=== PATIENT | female | born 1965 | race Asian ===

== ENCOUNTER 2018-05-28 13:41 | Observation (INO) | payer MEDICAID ==
[~2018-05-28] VITALS: Ht 170.2 cm; Wt 139.1 kg
[~2018-05-28 13:41] MED LIST: AMLO10TA8 PO; AMLO5TAB4 PO; ASPI-650 PO; ASPI81TA45 PO; ATOR40TA78 PO; CYCL-259 PO; DOCU100C33 PO; FURO-92 PO; FURO40TA6 PO; Furosemide PO; GLIM1TAB PO; HYDR-3341 PO; HYDR-3342 PO; HYDR25TA6 PO; LISI-167 PO; LISI-170 PO; LISI40TA PO; LOSA50TA2 PO; METF10002 PO; METF500T PO; METF750T2 PO; METO25TA35 PO; METO50TA82 PO; NICO-487 TD; NIFE60TA15 PO; NITR0.4T SL; OXYC-432 PO; POTA20PA25 PO; POTA20TA14 PO
[2018-05-28] MEDS ORDERED: NITROGLYCERIN SINGLE TAB 0.4 MG SL ONE (14:48)
[2018-05-28] MEDS ORDERED: ASPIRIN 81 MG TABLET CHEW ONE (14:49)
[2018-05-28] MEDS ORDERED: SODIUM CHLORIDE FLUSH 10ML SYR IVF ONE (15:00)
[2018-05-28] MEDS ORDERED: NITROGLYCERIN SINGLE TAB 0.4 MG SL PRN (15:00)
[2018-05-28] MEDS ORDERED: ASPIRIN 81 MG TABLET CHEW PO ONE (15:00)
[2018-05-28 15:25] LABS: MEAN CORPUSCULAR HEMOGLOBIN 28.9 pg (27.0-34.8); MEAN CORPUSCULAR HGB CONC 32.8 g/dL (32.4-35.8); MEAN PLATELET VOLUME 9.1 fL (7.4-10.4); PLATELET COUNT 230 x10^3/uL (130-400); RED BLOOD COUNT 5.38 x10^6/uL (3.82-5.3); RED CELL DISTRIBUTION WIDTH 14.8 % (9.6-15.2)
[2018-05-28 15:28] LABS: ALBUMIN 3.4 g/dL (3.4-5.0); ANION GAP 8 mmol/L (5-15); CHLORIDE 106 mmol/L (98-107); CREATININE 0.82 mg/dL (0.55-1.02)
[2018-05-28 15:52] LABS: BASOPHILS # (AUTO) 0.05 x10^3/uL (0-0.1); BASOPHILS % (AUTO) 1 % (0-1); EOSINOPHILS # (AUTO) 0.28 x10^3/uL (0-0.4); EOSINOPHILS % (AUTO) 3 % (1-7); LYMPHOCYTES # (AUTO) 2.31 x10^3/uL (1-3.4); LYMPHOCYTES % (AUTO) 26 % (22-44); MD SCAN; MONOCYTES # (AUTO) 0.45 x10^3/uL (0.2-0.8); MONOCYTES % (AUTO) 5 % (2-9); NEUTROPHILS # (AUTO) 5.71 x10^3/uL (1.8-6.8); NEUTROPHILS % (AUTO) 65 % (42-75)
--- NOTE | 2018-05-28 15:56 | NUR ---
patient reports no chest pain following Nitro SL, IV established, awaiting lab results
--- NOTE | 2018-05-28 16:20 | NUR ---
patient safe in bed at this time, chest pain minimal
[2018-05-28] MEDS ORDERED: ONDANSETRON 2MG/ML, 2ML IVPush PRN (17:30)
[2018-05-28] MEDS ORDERED: NITROGLYCERIN 0.4 MG BOTTLE (25 TABS) SL PRN (17:30)
[2018-05-28] MEDS ORDERED: ACETAMINOPHEN 325 MG TABLET PO PRN (17:30)
[2018-05-28] MEDS ORDERED: GUAIFENESIN/DM 200-20MG, 10ML UDC PO PRN (17:30)
[2018-05-28] MEDS ORDERED: DOCUSATE 100 MG CAPSULE PO PRN (17:30)
[2018-05-28] MEDS ORDERED: NITROGLYCERIN 0.4 MG/SPRAY SL PRN (17:30)
[2018-05-28] MEDS ORDERED: ONDANSETRON ODT 4 MG PO PRN (17:30)
[2018-05-28 17:39] LABS: TROPONIN I 0.043 ng/mL (0.000-0.045)
[2018-05-28 17:44] LABS: HEMOGLOBIN A1C 7.9 % (4.2-6.3)
[2018-05-28] MEDS ORDERED: METOPROLOL TARTRATE 25 MG TABLET ONE (18:33)
[2018-05-28] MEDS ORDERED: HEPARIN 5,000 UNITS/ML, 1ML ONE (18:33)
[2018-05-28 18:38] VITALS: BP 203/100
[2018-05-28] MEDS: METOPROLOL TARTRATE 25 MG TABLET PO SCH (18:43)
[2018-05-28] MEDS: HEPARIN 5,000 UNITS/ML, 1ML SQ SCH (18:44)
[2018-05-28] MEDS: hydrALAzine 20 MG/ML, 1ML IVPush PRN (18:44)
[2018-05-28 19:40] VITALS: BP 93/65
[2018-05-28] MEDS: LISINOPRIL 10 MG TABLET PO SCH (21:41)
[2018-05-28] MEDS: INSULIN LISPRO 100 UNITS/ML, PEN SQ-INSULIN SCH (21:44)
[2018-05-28 23:57] LABS: TROPONIN I 0.044 ng/mL (0.000-0.045)
[2018-05-29 01:01] VITALS: BP 168/79
[2018-05-29] MEDS ORDERED: OXYC-307 PO (01:09)
[2018-05-29] MEDS: HEPARIN 5,000 UNITS/ML, 1ML SQ SCH ×3 (01:29→18:06)
[2018-05-29 05:41] LABS: CHOL/HDL RATIO 4.4; LDL/HDL RATIO 2.8 (0.5-3.0); THYROID STIMULATING HORMONE 0.556 mIU/L (0.358-3.740)
[2018-05-29] MEDS: METOPROLOL TARTRATE 25 MG TABLET PO SCH ×2 (06:04→18:06)
[2018-05-29] MEDS: INSULIN LISPRO 100 UNITS/ML, PEN SQ-INSULIN SCH ×4 (07:00→20:41)
[2018-05-29 07:06] VITALS: BP 147/71
[2018-05-29] MEDS ORDERED: REGADENOSON 0.4 MG/5 ML SYRINGE ONE (08:06)
[2018-05-29] MEDS ORDERED: FUROSEMIDE 40 MG TABLET PO SCH (09:00)
[2018-05-29] MEDS ORDERED: TEMPLATE NON-FORMULARY MED. (Potassium Chloride** 20 MEQ) PO SCH (09:00)
[2018-05-29] MEDS: ASPIRIN 81 MG TABLET EC PO SCH (10:29)
[2018-05-29] MEDS: LISINOPRIL 10 MG TABLET PO SCH ×2 (10:29→20:36)
[2018-05-29 10:30] VITALS: BP 164/107
[2018-05-29 17:00] VITALS: BP 160/73
[2018-05-29 17:06] VITALS: BP 160/83
[2018-05-29 21:40] VITALS: BP 165/82
[2018-05-30] MEDS: HEPARIN 5,000 UNITS/ML, 1ML SQ SCH ×2 (02:16→11:41)
[2018-05-30 03:35] VITALS: BP 156/80
[2018-05-30] MEDS: METOPROLOL TARTRATE 25 MG TABLET PO SCH (05:47)
[2018-05-30] MEDS: INSULIN LISPRO 100 UNITS/ML, PEN SQ-INSULIN SCH ×2 (07:00→11:00)
[2018-05-30 08:00] VITALS: BP 154/78
[2018-05-30] MEDS ORDERED: LISINOPRIL 10 MG TABLET PO SCH (09:00)
[2018-05-30] MEDS: ASPIRIN 81 MG TABLET EC PO SCH (11:40)
[2018-05-30] MEDS ORDERED: METF750T2 PO (13:04)
[2018-05-30] MEDS ORDERED: DOCU-131 PO (13:04)
[2018-05-30] MEDS ORDERED: ATOR40TA78 PO (13:04)
[2018-05-30] MEDS ORDERED: LISI-167 PO (13:04)
[2018-05-30] MEDS ORDERED: ASPI81TA45 PO (13:04)
[2018-05-30] MEDS ORDERED: METO25TA35 PO (13:04)
[2018-05-30 13:45] VITALS: BP 187/101
[2018-05-30] MEDS: hydrALAzine 20 MG/ML, 1ML IVPush PRN (14:29)
== END 2018-05-30 16:05 | disposition home or self-care (01) ==
LOC: ED 14:31 → EDIP 16:53 → INTOOBSV 16:53 → 5SO 18:18 → DCLOUNGE 05-30 15:50
PROVIDERS: ADMIT Internal Medicine; ATTEND Internal Medicine
DX: R07.9 Chest pain, unspecified (principal); I16.0 Hypertensive urgency; E11.9 Type 2 diabetes mellitus without complications; E78.5 Hyperlipidemia, unspecified; F20.9 Schizophrenia, unspecified; F41.1 Generalized anxiety disorder; I11.0 Hypertensive heart disease with heart failure; I50.22 Chronic systolic (congestive) heart failure; I25.2 Old myocardial infarction; J44.9 Chronic obstructive pulmonary disease, unspecified; J98.4 Other disorders of lung; K76.0 Fatty (change of) liver, not elsewhere classified; Z72.0 Tobacco use; Z86.711 Personal history of pulmonary embolism; Z91.14 Patient's other noncompliance with medication regimen; Z91.19 Patient's noncompliance with other medical treatment and regimen
CPT/HCPCS: 36415; 71045; 78452; 80048; 80061; 82040; 82962; 83036; 83735; 84443; 84484; 85025; 85379; 93005; 93017; 96372; 96374; 96376; 99284; A9502; C8929; C9898; G0378; J0360; J1644; J1815; J2785; Q9957

== ENCOUNTER 2018-08-08 10:04 | Emergency (ER) | payer MEDICAID ==
[~2018-08-08] VITALS: Ht 170.2 cm; Wt 139.0 kg
[~2018-08-08 10:04] MED LIST changes: +DOCU-131 PO; +OXYC-307 PO
--- NOTE | 2018-08-08 10:12 | NUR ---
[facility] in [facility] - 08/08/18 at 1013 by JASMIN PT NOW IN ROOM FROM BATHROOM. PT ASKED TO CHANGE INTO GOWN
--- NOTE | 2018-08-08 10:16 | NUR ---
52 Y/O FEMALE BIB AMBULANCE WITH C/O WEAKNESS. PT AMBULATORY WITH STEADY GAIT TO ROOM WITH EMS. PER REPORT PT C/O WEAKNESS D/T NOT HAVING HER MEDICATIONS. PT HAS PCP APPT SATURDAY TO GET REFILLS. PT WAS GIVEN 2 SL NITRO ROTOR COIL TAPER. PIV ESTABLISHED ROTOR COIL TAPER. PT STATES "I AM OUT OF MY MEDICATIONS. I HAVE AN APPT SATURDAY, BUT I DON'T FEEL GOOD." NO ACUTE DISTRESS NOTED. PT PLACED ON CONT PULSE OX,NIBP, DISTRICT SALES LEADER. EDPA BEDSIDE. NO C/O N/V/D, TRAUMA, SYNCOPE, CP, SOB.
--- NOTE | 2018-08-08 10:18 | NUR ---
PT STATES "I TAKE METOPROLOL, LISINOPRIL, METFORMIN, AND ASPIRIN. I DON'T KNOW THE DOSAGES. THERES A FEW MORE MEDS, BUT I DON'T REMEMBER THEM"
[2018-08-08] MEDS ORDERED: SODIUM CHLORIDE FLUSH 10ML SYR IVF ONE (10:30)
--- NOTE | 2018-08-08 10:55 | NUR ---
BEDSIDE REPORT TO CECILY SMITH
--- NOTE | 2018-08-08 10:56 | NUR ---
BEDSIDE REPORT FROM ACE TONY
[2018-08-08 11:23] LABS: BASOPHILS # (AUTO) 0.03 x10^3/uL (0-0.1); BASOPHILS % (AUTO) 0 % (0-1); EOSINOPHILS # (AUTO) 0.18 x10^3/uL (0-0.4); EOSINOPHILS % (AUTO) 2 % (1-7); LYMPHOCYTES # (AUTO) 1.52 x10^3/uL (1-3.4); LYMPHOCYTES % (AUTO) 14 % (22-44); MD NO; MEAN CORPUSCULAR HEMOGLOBIN 29.7 pg (27.0-34.8); MEAN CORPUSCULAR HGB CONC 34.5 g/dL (32.4-35.8); MEAN PLATELET VOLUME 8.8 fL (7.4-10.4); MONOCYTES # (AUTO) 0.59 x10^3/uL (0.2-0.8); MONOCYTES % (AUTO) 6 % (2-9); NEUTROPHILS # (AUTO) 8.26 x10^3/uL (1.8-6.8); NEUTROPHILS % (AUTO) 78 % (42-75); PLATELET COUNT 253 x10^3/uL (130-400); RED CELL DISTRIBUTION WIDTH 14.8 % (9.6-15.2)
[2018-08-08 11:30] LABS: ALANINE AMINOTRANSFERASE 18 U/L (12-78); ALBUMIN 3.1 g/dL (3.4-5.0); ANION GAP 9 mmol/L (5-15); CALCIUM 8.8 mg/dL (8.5-10.1); CHLORIDE 102 mmol/L (98-107); CREATININE 0.82 mg/dL (0.55-1.02)
[2018-08-08 11:34] LABS: ALKALINE PHOSPHATASE 80 U/L (45-117); BILIRUBIN,TOTAL 0.7 mg/dL (0.2-1.0); TOTAL PROTEIN 8.2 g/dL (6.4-8.2); TROPONIN I < 0.015 ng/mL (0.000-0.045)
--- NOTE | 2018-08-08 11:58 | NUR ---
PT SLEEPING IN GURNEY, EQUAL CHEST RISE AND FALL. PT UP FOR RECHECK
[2018-08-08 13:03] VITALS: BP 184/73
--- NOTE | 2018-08-08 13:05 | NUR ---
PT AMBULATED TO BATHROOM WITH STEADY GAIT, UP FOR RECHECK
== END 2018-08-08 13:57 | disposition home or self-care (01) ==
LOC: ED 11:16
DX: R07.89 Other chest pain (principal); I50.9 Heart failure, unspecified; I11.0 Hypertensive heart disease with heart failure; I25.2 Old myocardial infarction; J44.9 Chronic obstructive pulmonary disease, unspecified
CPT/HCPCS: 36415; 71045; 80053; 83880; 84484; 85025; 93005; 99284

== ENCOUNTER 2018-08-10 14:05 | Emergency (ER) | payer MEDICAID ==
[~2018-08-10] VITALS: Ht 170.2 cm; Wt 134.1 kg
--- NOTE | 2018-08-10 14:10 | NUR ---
PT BIB [facility] FROM HOME WITH C/O SHARP ABD PAIN SINCE THIS AM, VOMITING FOR SEVERAL DAYS, AND DYSURIA FOR "A COUPLE WEEKS". HX HTN, DM, AFIB. BP ELEVATED 164/99 FOR MEDICS. PT ARRIVES TO ED A&OX4, C/O ABD PAIN 11/22. ERP AT BS IMMEDIATELY. RV'WD POC WITH PT.
[2018-08-10] MEDS ORDERED: MORPHINE SULFATE 4 MG/ML, 1ML IVPush PRN (14:30)
[2018-08-10] MEDS ORDERED: SODIUM CHLORIDE FLUSH 10ML SYR IVF ONE (14:30)
[2018-08-10 14:34] LABS: MEAN CORPUSCULAR HEMOGLOBIN 28.4 pg (27.0-34.8); MEAN CORPUSCULAR HGB CONC 32.7 g/dL (32.4-35.8); MEAN PLATELET VOLUME 8.6 fL (7.4-10.4); PLATELET COUNT 277 x10^3/uL (130-400); RED BLOOD COUNT 4.66 x10^6/uL (3.82-5.3); RED CELL DISTRIBUTION WIDTH 14.8 % (9.6-15.2)
[2018-08-10 14:43] LABS: ALANINE AMINOTRANSFERASE 21 U/L (12-78); ALBUMIN 3.1 g/dL (3.4-5.0); ANION GAP 10 mmol/L (5-15); CALCIUM 8.9 mg/dL (8.5-10.1); CHLORIDE 101 mmol/L (98-107); CREATININE 0.84 mg/dL (0.55-1.02)
--- NOTE | 2018-08-10 14:43 | NUR ---
CT PENDING BETA RESULT.
[2018-08-10 14:48] LABS: ALKALINE PHOSPHATASE 76 U/L (45-117); BILIRUBIN,TOTAL 0.8 mg/dL (0.2-1.0); INTERNATIONAL NORMALIZED RATIO 1.04 (0.93-1.1); PROTHROMBIN TIME 10.9 Seconds (9.6-11.5); TOTAL PROTEIN 8.1 g/dL (6.4-8.2)
[2018-08-10] MEDS ORDERED: MORPHINE SULFATE 4 MG/ML, 1ML ONE (14:59)
[2018-08-10 15:05] LABS: BASOPHILS # (AUTO) 0.02 x10^3/uL (0-0.1); BASOPHILS % (AUTO) 0 % (0-1); EOSINOPHILS # (AUTO) 0.16 x10^3/uL (0-0.4); EOSINOPHILS % (AUTO) 2 % (1-7); LYMPHOCYTES # (AUTO) 2.23 x10^3/uL (1-3.4); LYMPHOCYTES % (AUTO) 20 % (22-44); MD SCAN; MONOCYTES # (AUTO) 0.61 x10^3/uL (0.2-0.8); MONOCYTES % (AUTO) 6 % (2-9); NEUTROPHILS # (AUTO) 7.98 x10^3/uL (1.8-6.8); NEUTROPHILS % (AUTO) 73 % (42-75)
--- NOTE | 2018-08-10 15:25 | NUR ---
PT AMBULATED TO BR WITHOUT DIFFICULTY. INSTRUCTED ON CLEAN CATCH URINE SAMPLE.
[2018-08-10 15:49] LABS: CULTURE INDICATED? YES; MICROSCOPIC INDICATED
--- NOTE | 2018-08-10 16:17 | NUR ---
ERP IN FOR RE-EVAL.
[2018-08-10] MEDS ORDERED: DICYCLOMINE 20 MG TABLET PO ONE (16:30)
[2018-08-10] MEDS ORDERED: DICYCLOMINE 20 MG TABLET ONE (16:40)
[2018-08-10 16:45] VITALS: BP 178/76
--- NOTE | 2018-08-10 17:12 | NUR ---
BREAK RN NOTE: REPORT RECEIVED FROM PRIMARY RN TARA. PT MEDICATED PER EMAR, TOLERATED WELL. NO N/V AT TIME OF DC. EDMD LAW NOTIFIED BP RECHECK WAS 176/78, EDMD OK'D DC. PT GIVEN DC INSTRUCTIONS AND SCRIPT, EDUCATED REGARDING RX FOR BENTYL, ZOFRAN AND ZANTAC. PT DENIES PAIN AT TIME OF DC. PT AMB TO DC DESK WITH STEADY GAIT, BUS PASS PROVIDED AT PT REQUEST. NADN AT DC. ALL QUESTIONS ANSWERED.
== END 2018-08-10 17:13 | disposition home or self-care (01) ==
LOC: ED 16:21
DX: R10.84 Generalized abdominal pain (principal); N20.0 Calculus of kidney; F17.200 Nicotine dependence, unspecified, uncomplicated; J44.9 Chronic obstructive pulmonary disease, unspecified; I25.2 Old myocardial infarction; I50.9 Heart failure, unspecified; I11.0 Hypertensive heart disease with heart failure; E11.9 Type 2 diabetes mellitus without complications
CPT/HCPCS: 36415; 74176; 80053; 81001; 83690; 84703; 85025; 85610; 85730; 87086; 96374

== ENCOUNTER 2018-08-13 12:55 | Emergency (ER) | payer MEDICAID ==
[~2018-08-13] VITALS: Ht 170.2 cm; Wt 130.0 kg
--- NOTE | 2018-08-13 13:20 | NUR ---
PT PLACED ON HEART MONITOR, BP CUFF, PULSE OX. PT WITHOUT NAUSEA AT THIS TIME. PER PT, CP LESS AND DESCRIBED HEAVINESS. PT WITH SAME SX SATURDAY AND SATURDAY WITH RESOLUTION OF SX WITH REST. CALL LIGHT WITHIN REACH, FAMILY AT BS. WARM BLANKET PROVIDED.
[2018-08-13] MEDS ORDERED: ASPIRIN 81 MG TABLET CHEW PO ONE (13:30)
[2018-08-13 13:50] LABS: BASOPHILS # (AUTO) 0.04 x10^3/uL (0-0.1); BASOPHILS % (AUTO) 0 % (0-1); EOSINOPHILS # (AUTO) 0.22 x10^3/uL (0-0.4); EOSINOPHILS % (AUTO) 2 % (1-7); LYMPHOCYTES # (AUTO) 2.08 x10^3/uL (1-3.4); LYMPHOCYTES % (AUTO) 16 % (22-44); MD NO; MEAN CORPUSCULAR HEMOGLOBIN 28.2 pg (27.0-34.8); MEAN CORPUSCULAR HGB CONC 32.6 g/dL (32.4-35.8); MEAN CORPUSCULAR VOLUME 86.4 fL (80-100); MEAN PLATELET VOLUME 8.5 fL (7.4-10.4); MONOCYTES # (AUTO) 0.49 x10^3/uL (0.2-0.8); MONOCYTES % (AUTO) 4 % (2-9); NEUTROPHILS # (AUTO) 10.16 x10^3/uL (1.8-6.8); NEUTROPHILS % (AUTO) 78 % (42-75); PLATELET COUNT 303 x10^3/uL (130-400); RED BLOOD COUNT 4.08 x10^6/uL (3.82-5.3); RED CELL DISTRIBUTION WIDTH 14.7 % (9.6-15.2)
[2018-08-13 13:52] LABS: ALBUMIN 2.8 g/dL (3.4-5.0); ANION GAP 8 mmol/L (5-15); CALCIUM 8.7 mg/dL (8.5-10.1); CHLORIDE 108 mmol/L (98-107); CREATININE 0.93 mg/dL (0.55-1.02)
[2018-08-13 13:56] LABS: TROPONIN I 0.017 ng/mL (0.000-0.045)
--- NOTE | 2018-08-13 14:03 | NUR ---
ALL RESULTS BACK, PT FOR RECHECK.
[2018-08-13 14:38] VITALS: BP 142/70
== END 2018-08-13 14:54 | disposition home or self-care (01) ==
LOC: ED 14:09
DX: R06.00 Dyspnea, unspecified (principal); R07.89 Other chest pain; E11.9 Type 2 diabetes mellitus without complications; F17.210 Nicotine dependence, cigarettes, uncomplicated
CPT/HCPCS: 36415; 71045; 80048; 82040; 83880; 84484; 85025; 93005; 99284; 99406

== ENCOUNTER 2018-08-19 08:13 | Emergency (ER) | payer MEDICAID ==
[~2018-08-19] VITALS: Ht 170.2 cm; Wt 131.4 kg
[2018-08-19 09:09] LABS: TROPONIN I 0.018 ng/mL (0.000-0.045)
[2018-08-19 09:39] VITALS: BP 189/94
== END 2018-08-19 09:41 ==
LOC: ED 09:19
DX: R07.89 Other chest pain (principal); F17.210 Nicotine dependence, cigarettes, uncomplicated; J44.9 Chronic obstructive pulmonary disease, unspecified; I50.9 Heart failure, unspecified; I11.0 Hypertensive heart disease with heart failure; E11.9 Type 2 diabetes mellitus without complications; I25.2 Old myocardial infarction
CPT/HCPCS: 36415; 84484; 93005; 99284

== ENCOUNTER 2018-09-28 04:20 | Inpatient (IN) | payer MEDICAID ==
[~2018-09-28] VITALS: Ht 177.8 cm; Wt 131.3 kg
[~2018-09-28 04:20] MED LIST changes: +FERR325T18 PO; +HYDROCHLOROTH12.5 MG PO; -NITR0.4T SL; +NITR0.4T41 SL; +OMEP-110 PO; +POTA10CA PO
--- NOTE | 2018-09-28 04:57 | NUR ---
PT TO ROOM FROM TRIAGE VIA WHEELCHAIR. EMESIS BAG CONTAINING APPROX 100ML THROWN AWAY. PT REPORTS L THORACIC PAIN/CP X "THIS AM". +N/V/PRODUCTIVE COUGH. NO BLOOD NOTED IN EMESIS. PT WITH LOW GRADE TEMP IN TRIAGE. PT HYPERTENSIVE IN TRIAGE, REPORTS HX OF SAME AND MISSED LAST DOSE D/T OF GRANDCHILD. PT DENIES CARRASCO; GROSS NEURO INTACT. CHEST NON-TENDER TO PALPATION, PT PWD. RAPID, DEEP BREATHS NOTED. PT ABLE TO SPEAK IN FULL SENTENCES, SPO2 >90% ON RA. BP/SPO2/ECG MONITOR IN PLACE. NSR ON MONITOR. PIV ATTEMPT X1 UNSUCCESSFUL. YANY RN AT BEDSIDE TO ATTEMPT.
--- NOTE | 2018-09-28 05:44 | NUR ---
PT TRANSFERED SELF WITH STANDBY ASSISTANCE TO BEDSIDE COMMODE. UA COLLECTED AND IS AT BEDSIDE AWAITING ORDER. BP/SPO2/ECG MONITORING REMAIN IN PLACE. PT REMAINS HYPERTENSIVE. ERP AT BEDSIDE FOR INITIAL ASSESSMENT AND IS AWARE. PT DENIES CP/CARRASCO; GROSS NEURO INTACT.
[2018-09-28] MEDS ORDERED: ACETAMINOPHEN 325 MG TABLET ONE (05:51)
[2018-09-28] MEDS ORDERED: hydrALAzine 20 MG/ML, 1ML ONE ×2 (05:51→07:00)
--- NOTE | 2018-09-28 05:59 | NUR ---
PT MEDICATED PER EMAR FOR FEVER AND HTN.
[2018-09-28] MEDS ORDERED: ACETAMINOPHEN 325 MG TABLET PO ONE (06:00)
[2018-09-28] MEDS ORDERED: hydrALAzine 20 MG/ML, 1ML IV ONE ×2 (06:00→07:00)
[2018-09-28] MEDS ORDERED: SODIUM CHLORIDE FLUSH 10ML SYR IVF ONE (06:00)
[2018-09-28 06:09] LABS: MEAN CORPUSCULAR HEMOGLOBIN 27.4 pg (27.0-34.8); MEAN CORPUSCULAR HGB CONC 31.7 g/dL (32.4-35.8); MEAN CORPUSCULAR VOLUME 86.6 fL (80-100); MEAN PLATELET VOLUME 9.3 fL (7.4-10.4); PLATELET COUNT 296 x10^3/uL (130-400); RED BLOOD COUNT 5.17 x10^6/uL (3.82-5.3); RED CELL DISTRIBUTION WIDTH 17.3 % (9.6-15.2)
[2018-09-28] MEDS ORDERED: ONDANSETRON 2MG/ML, 2ML ONE (06:13)
[2018-09-28] MEDS ORDERED: MORPHINE SULFATE 4 MG/ML, 1ML ONE ×2 (06:13→06:59)
[2018-09-28] MEDS: MORPHINE SULFATE 4 MG/ML, 1ML IVPush PRN ×2 (06:16→07:03)
[2018-09-28 06:21] LABS: MICROSCOPIC NOT IND
--- NOTE | 2018-09-28 06:21 | NUR ---
PT MEDICATED PER EMAR FOR 01/22 PAIN. 2L O2 BY NC APPLIED FOR SUPPORT. SPO2 REMAINS >90%. IMPROVED RR NOTED, NOW 22.
[2018-09-28 06:22] LABS: ALANINE AMINOTRANSFERASE 14 U/L (12-78); ANION GAP 9 mmol/L (5-15); CALCIUM 9.7 mg/dL (8.5-10.1); CHLORIDE 99 mmol/L (98-107); CREATININE 0.94 mg/dL (0.55-1.02); MD YES
[2018-09-28 06:23] LABS: CULTURE INDICATED? NO
[2018-09-28 06:24] LABS: ANISOCYTOSIS 1+; BAND#(MANUAL) 0.79 x10^3/uL; BANDS%(MANUAL) 4 % (0-7); EOS% (MANUAL) 1 % (1-7); LYMPH#(MANUAL) 0.79 x10^3/uL (1-3.4); LYMPHS% (MANUAL) 4 % (22-44); MONOS#(MANUAL) 0.39 x10^3/uL (0.3-2.7); MONOS% (MANUAL) 2 % (2-9); NRBC % (MANUAL) 1 % (0-1); SEG#(MANUAL) 17.53 x10^3/uL (1.8-6.8); SEGS% (MANUAL) 89 % (42-75)
[2018-09-28 06:25] LABS: <PLATELET ESTIMATE> ADEQUATE; <PLT MORPHOLOGY> NORMAL PLT MORPH
[2018-09-28 06:26] LABS: ALKALINE PHOSPHATASE 90 U/L (45-117); BILIRUBIN,TOTAL 0.8 mg/dL (0.2-1.0); TOTAL PROTEIN 9.3 g/dL (6.4-8.2); TROPONIN I < 0.015 ng/mL (0.000-0.045)
[2018-09-28] MEDS ORDERED: ONDANSETRON 2MG/ML, 2ML IVPush ONE (06:30)
--- NOTE | 2018-09-28 06:51 | NUR ---
Received bedside report from CECILY Cohen. All questions answered. NADN. No needs expressed. Pt resting on gurney with both bedrails up for safety measures. Pt has call light within reach. Pt RR at 19 on 2 L oxygen via NC and pulse ox is 95%. Pt remains hypertensive at 187/79, with heart rate at 98.
[2018-09-28] MEDS ORDERED: SODIUM CHLORIDE 0.9% 1,000ML IVBOLUS ONE (07:00)
[2018-09-28] MEDS ORDERED: CEFTRIAXONE PMX 1GM/50ML 50 ML IVPB ONE (07:00)
[2018-09-28] MEDS ORDERED: AZITHROMYCIN 500 MG in SODIUM CHLORIDE 0.9% 250 ML IV ONE (07:00)
[2018-09-28] MEDS ORDERED: ONDANSETRON 2MG/ML, 2ML IVPush PRN ×2 (07:30→08:30)
[2018-09-28] MEDS ORDERED: MORPHINE SULFATE 4 MG/ML, 1ML IVPush PRN (07:30)
--- NOTE | 2018-09-28 07:48 | NUR ---
Called and provided report to CECILY Knott. All questions answered. Pt ready to transfer to floor from ED.
--- NOTE | 2018-09-28 07:55 | NUR ---
Pt transfered to floor from ED and left with all personal belongings.
[2018-09-28] MEDS ORDERED: ZOSYN PER PHARMACY MC PRN (08:30)
[2018-09-28] MEDS ORDERED: ONDANSETRON ODT 4 MG PO PRN (08:30)
[2018-09-28] MEDS ORDERED: hydrALAzine 20 MG/ML, 1ML IVPush PRN (08:30)
[2018-09-28] MEDS ORDERED: PROMETHAZINE 25 MG/ML, 1ML IM PRN (08:30)
[2018-09-28] MEDS ORDERED: VANCOMYCIN PER PHARMACY MC PRN (08:30)
[2018-09-28] MEDS ORDERED: LABETALOL 5MG/ML, 20ML IVPush PRN (08:30)
[2018-09-28] MEDS ORDERED: PHARMACOKINETIC MONITORING MC PRN (09:00)
[2018-09-28] MEDS ORDERED: PHARMACOKINETIC CONSULTATION MC ONE (09:00)
[2018-09-28] MEDS ORDERED: OMNIPAQUE 350 MG/ML, 100ML BOTTLE ONE (09:28)
[2018-09-28] MEDS: ENOXAPARIN 40 MG/0.4 ML SQ SCH (10:16)
[2018-09-28] MEDS: HYDROCHLOROTHIAZIDE 12.5 MG CAPSULE PO SCH (10:17)
[2018-09-28] MEDS: NICOTINE 7 MG/24 HR PATCH.TD24 TD SCH (10:17)
[2018-09-28] MEDS: SODIUM CHLORIDE 0.9% 1,000 ML IV SCH ×2 (10:17→20:13)
[2018-09-28] MEDS: LISINOPRIL 20 MG TABLET PO SCH ×2 (10:17→21:02)
[2018-09-28] MEDS: FERROUS SULFATE 325 MG TABLET PO SCH (10:17)
[2018-09-28] MEDS: PIPERACILLIN/TAZO/PMX 3.375GM 50 ML IV SCH ×3 (10:18→22:30)
[2018-09-28] MEDS: GUAIFENESIN 200 MG TABLET PO SCH ×3 (10:59→21:02)
[2018-09-28] MEDS: DOXYCYCLINE 100 MG in DEXTROSE 5% 250 ML IV SCH ×3 (10:59→23:36)
[2018-09-28 12:56] VITALS: BP 126/75
[2018-09-28] MEDS: VANCOMYCIN 2,000 MG in SODIUM CHLORIDE 0.9% 500 ML IV SCH (13:00)
[2018-09-28] MEDS: INSULIN LISPRO 100 UNITS/ML, PEN SQ-INSULIN SCH ×3 (13:01→21:01)
[2018-09-28] MEDS: ACETAMINOPHEN 325 MG TABLET PO PRN ×2 (13:41→21:03)
[2018-09-28] MEDS: OMEPRAZOLE 20 MG CAPSULE.DR PO SCH (16:41)
[2018-09-28 17:54] VITALS: BP 128/78
[2018-09-28] MEDS: METOPROLOL TARTRATE 25 MG TABLET PO SCH (17:57)
[2018-09-28 19:52] VITALS: BP 104/67
[2018-09-29] MEDS ORDERED: SODIUM CHLORIDE 0.9% 1,000 ML IV SCH (02:00)
[2018-09-29 02:51] VITALS: BP 128/75
[2018-09-29] MEDS: SODIUM CHLORIDE 0.9% 1,000 ML IV SCH (04:00)
[2018-09-29] MEDS: PIPERACILLIN/TAZO/PMX 3.375GM 50 ML IV SCH ×4 (04:04→22:00)
[2018-09-29] MEDS: OMEPRAZOLE 20 MG CAPSULE.DR PO SCH ×2 (05:11→16:10)
[2018-09-29] MEDS: METOPROLOL TARTRATE 25 MG TABLET PO SCH ×2 (05:11→17:17)
[2018-09-29] MEDS: GUAIFENESIN 200 MG TABLET PO SCH ×4 (05:11→20:13)
[2018-09-29] MEDS: ACETAMINOPHEN 325 MG TABLET PO PRN ×3 (05:11→20:16)
[2018-09-29 06:17] LABS: MEAN CORPUSCULAR HEMOGLOBIN 27.6 pg (27.0-34.8); MEAN CORPUSCULAR HGB CONC 31.5 g/dL (32.4-35.8); MEAN CORPUSCULAR VOLUME 87.6 fL (80-100); MEAN PLATELET VOLUME 8.5 fL (7.4-10.4); PLATELET COUNT 238 x10^3/uL (130-400); RED BLOOD COUNT 4.12 x10^6/uL (3.82-5.3); RED CELL DISTRIBUTION WIDTH 17.4 % (9.6-15.2)
[2018-09-29 06:25] LABS: CALCIUM 8.3 mg/dL (8.5-10.1); CHLORIDE 105 mmol/L (98-107)
[2018-09-29] MEDS: VANCOMYCIN 2,000 MG in SODIUM CHLORIDE 0.9% 500 ML IV SCH (06:26)
[2018-09-29 06:32] LABS: ALANINE AMINOTRANSFERASE 12 U/L (12-78); ALBUMIN 2.8 g/dL (3.4-5.0); ALKALINE PHOSPHATASE 56 U/L (45-117); ANION GAP 6 mmol/L (5-15); BILIRUBIN,TOTAL 1.3 mg/dL (0.2-1.0); TOTAL PROTEIN 7.1 g/dL (6.4-8.2)
[2018-09-29 06:33] LABS: BASOPHILS # (AUTO) 0.03 x10^3/uL (0-0.1); BASOPHILS % (AUTO) 0 % (0-1); EOSINOPHILS # (AUTO) 0.13 x10^3/uL (0-0.4); EOSINOPHILS % (AUTO) 1 % (1-7); LYMPHOCYTES # (AUTO) 2.12 x10^3/uL (1-3.4); LYMPHOCYTES % (AUTO) 10 % (22-44); MD SCAN; MONOCYTES # (AUTO) 0.87 x10^3/uL (0.2-0.8); MONOCYTES % (AUTO) 4 % (2-9); NEUTROPHILS # (AUTO) 17.94 x10^3/uL (1.8-6.8); NEUTROPHILS % (AUTO) 85 % (42-75)
[2018-09-29 06:34] VITALS: BP 99/63
[2018-09-29] MEDS: INSULIN LISPRO 100 UNITS/ML, PEN SQ-INSULIN SCH ×4 (07:23→20:13)
[2018-09-29] MEDS: LISINOPRIL 20 MG TABLET PO SCH ×2 (09:00→20:13)
[2018-09-29] MEDS: ENOXAPARIN 40 MG/0.4 ML SQ SCH (09:00)
[2018-09-29] MEDS: NICOTINE 7 MG/24 HR PATCH.TD24 TD SCH (09:00)
[2018-09-29] MEDS: HYDROCHLOROTHIAZIDE 12.5 MG CAPSULE PO SCH (09:00)
[2018-09-29] MEDS: FERROUS SULFATE 325 MG TABLET PO SCH (09:00)
[2018-09-29 09:03] VITALS: BP 147/74
[2018-09-29] MEDS ORDERED: VANCOMYCIN 2,000 MG in SODIUM CHLORIDE 0.9% 500 ML IV SCH (11:00)
[2018-09-29 12:00] VITALS: BP 152/82
[2018-09-29] MEDS: DOXYCYCLINE 100 MG in DEXTROSE 5% 250 ML IV SCH ×2 (12:21→22:54)
[2018-09-29] MEDS: POTASSIUM CHLORIDE 20 MEQ TAB.ER.PRT PO SCH (16:12)
[2018-09-29 17:19] VITALS: BP 162/76
[2018-09-29 19:32] VITALS: BP 143/74
[2018-09-30] MEDS ORDERED: SODIUM CHLORIDE 0.9% 1,000 ML IV SCH (02:00)
[2018-09-30 02:49] VITALS: BP 164/78
[2018-09-30] MEDS: PIPERACILLIN/TAZO/PMX 3.375GM 50 ML IV SCH (04:31)
[2018-09-30] MEDS: GUAIFENESIN 200 MG TABLET PO SCH ×4 (05:24→21:13)
[2018-09-30] MEDS: OMEPRAZOLE 20 MG CAPSULE.DR PO SCH ×2 (05:24→17:26)
[2018-09-30] MEDS: METOPROLOL TARTRATE 25 MG TABLET PO SCH ×2 (05:25→08:20)
[2018-09-30 05:39] LABS: BASOPHILS % (AUTO) 0 % (0-1); EOSINOPHILS # (AUTO) 0.25 x10^3/uL (0-0.4); EOSINOPHILS % (AUTO) 3 % (1-7); LYMPHOCYTES # (AUTO) 1.71 x10^3/uL (1-3.4); LYMPHOCYTES % (AUTO) 17 % (22-44); MD NO; MEAN CORPUSCULAR HEMOGLOBIN 27.1 pg (27.0-34.8); MEAN CORPUSCULAR HGB CONC 31.4 g/dL (32.4-35.8); MEAN CORPUSCULAR VOLUME 86.4 fL (80-100); MEAN PLATELET VOLUME 8.4 fL (7.4-10.4); MONOCYTES # (AUTO) 0.52 x10^3/uL (0.2-0.8); MONOCYTES % (AUTO) 5 % (2-9); NEUTROPHILS # (AUTO) 7.51 x10^3/uL (1.8-6.8); NEUTROPHILS % (AUTO) 75 % (42-75); PLATELET COUNT 229 x10^3/uL (130-400); RED BLOOD COUNT 4.01 x10^6/uL (3.82-5.3); RED CELL DISTRIBUTION WIDTH 16.6 % (9.6-15.2)
[2018-09-30 05:49] LABS: CALCIUM 9.1 mg/dL (8.5-10.1); CHLORIDE 106 mmol/L (98-107)
[2018-09-30 05:55] LABS: ALANINE AMINOTRANSFERASE 13 U/L (12-78); ALBUMIN 2.9 g/dL (3.4-5.0); ALKALINE PHOSPHATASE 59 U/L (45-117); ANION GAP 9 mmol/L (5-15); BILIRUBIN,TOTAL 0.5 mg/dL (0.2-1.0); CREATININE 0.81 mg/dL (0.55-1.02); TOTAL PROTEIN 7.5 g/dL (6.4-8.2)
[2018-09-30] MEDS: INSULIN LISPRO 100 UNITS/ML, PEN SQ-INSULIN SCH ×4 (08:09→21:14)
[2018-09-30] MEDS: POTASSIUM CHLORIDE 20 MEQ TAB.ER.PRT PO SCH ×2 (08:19→17:26)
[2018-09-30] MEDS: LISINOPRIL 20 MG TABLET PO SCH ×2 (08:19→21:14)
[2018-09-30] MEDS: FERROUS SULFATE 325 MG TABLET PO SCH (08:19)
[2018-09-30] MEDS: ENOXAPARIN 40 MG/0.4 ML SQ SCH (08:20)
[2018-09-30] MEDS: HYDROCHLOROTHIAZIDE 25 MG TABLET PO SCH (08:20)
[2018-09-30] MEDS: NICOTINE 7 MG/24 HR PATCH.TD24 TD SCH (08:20)
[2018-09-30 08:28] VITALS: BP 179/77
[2018-09-30] MEDS ORDERED: CEFTRIAXONE PMX 1GM/50ML 50 ML IV SCH (09:00)
[2018-09-30] MEDS ORDERED: AMLODIPINE 5 MG TABLET PO SCH (09:00)
[2018-09-30 11:01] LABS: HEMOGLOBIN A1C 6.5 % (4.2-6.3)
[2018-09-30] MEDS: DOXYCYCLINE 100 MG in DEXTROSE 5% 250 ML IV SCH ×2 (11:32→23:12)
[2018-09-30] MEDS: SPIRONOLACTONE 25 MG TABLET PO SCH (11:43)
[2018-09-30 13:50] VITALS: BP 163/76
[2018-09-30] MEDS: ALBUTEROL SULFATE 2.5 MG/3 ML NPPB PRN (14:18)
[2018-09-30 20:22] VITALS: BP 165/84
[2018-09-30] MEDS: ACETAMINOPHEN 325 MG TABLET PO PRN (21:17)
[2018-10-01] VITALS (8 sets, daily range): BP systolic 129–196; BP diastolic 67–97
[2018-10-01] MEDS: GUAIFENESIN 200 MG TABLET PO SCH ×4 (05:32→20:57)
[2018-10-01] MEDS: OMEPRAZOLE 20 MG CAPSULE.DR PO SCH ×2 (05:32→16:07)
[2018-10-01] MEDS: ALBUTEROL SULFATE 2.5 MG/3 ML NPPB PRN ×2 (06:30→14:35)
[2018-10-01 06:38] LABS: BASOPHILS # (AUTO) 0.02 x10^3/uL (0-0.1); BASOPHILS % (AUTO) 0 % (0-1); EOSINOPHILS # (AUTO) 0.28 x10^3/uL (0-0.4); EOSINOPHILS % (AUTO) 5 % (1-7); LYMPHOCYTES # (AUTO) 1.69 x10^3/uL (1-3.4); LYMPHOCYTES % (AUTO) 27 % (22-44); MD NO; MEAN CORPUSCULAR HEMOGLOBIN 27.7 pg (27.0-34.8); MEAN CORPUSCULAR HGB CONC 31.9 g/dL (32.4-35.8); MEAN CORPUSCULAR VOLUME 86.8 fL (80-100); MONOCYTES # (AUTO) 0.35 x10^3/uL (0.2-0.8); MONOCYTES % (AUTO) 6 % (2-9); NEUTROPHILS # (AUTO) 3.86 x10^3/uL (1.8-6.8); NEUTROPHILS % (AUTO) 62 % (42-75); PLATELET COUNT 289 x10^3/uL (130-400); RED BLOOD COUNT 4.39 x10^6/uL (3.82-5.3); RED CELL DISTRIBUTION WIDTH 17.2 % (9.6-15.2)
[2018-10-01 06:46] LABS: ALBUMIN 3.3 g/dL (3.4-5.0); ANION GAP 10 mmol/L (5-15); CALCIUM 9.9 mg/dL (8.5-10.1); CHLORIDE 106 mmol/L (98-107)
[2018-10-01 06:50] LABS: ALANINE AMINOTRANSFERASE 16 U/L (12-78); ALKALINE PHOSPHATASE 67 U/L (45-117); BILIRUBIN,TOTAL 0.4 mg/dL (0.2-1.0); CREATININE 0.77 mg/dL (0.55-1.02); TOTAL PROTEIN 8.4 g/dL (6.4-8.2)
[2018-10-01] MEDS: INSULIN LISPRO 100 UNITS/ML, PEN SQ-INSULIN SCH ×4 (07:00→20:58)
[2018-10-01] MEDS: LISINOPRIL 20 MG TABLET PO SCH ×2 (08:13→20:58)
[2018-10-01] MEDS: HYDROCHLOROTHIAZIDE 25 MG TABLET PO SCH (08:14)
[2018-10-01] MEDS: METOPROLOL TARTRATE 25 MG TABLET PO SCH (08:14)
[2018-10-01] MEDS: DOXYCYCLINE 100MG TABLET PO SCH ×2 (08:14→20:58)
[2018-10-01] MEDS: SPIRONOLACTONE 25 MG TABLET PO SCH (08:14)
[2018-10-01] MEDS: POTASSIUM CHLORIDE 20 MEQ TAB.ER.PRT PO SCH ×2 (08:15→16:00)
[2018-10-01] MEDS: AMOXICILLIN/CLAV 875-125MG TABLET PO SCH ×2 (08:16→20:57)
[2018-10-01] MEDS: NICOTINE 7 MG/24 HR PATCH.TD24 TD SCH (08:16)
[2018-10-01] MEDS: ENOXAPARIN 40 MG/0.4 ML SQ SCH (08:16)
[2018-10-01] MEDS: ACETAMINOPHEN 325 MG TABLET PO PRN (08:33)
[2018-10-01] MEDS: FERROUS SULFATE 325 MG TABLET PO SCH (12:24)
[2018-10-01] MEDS ORDERED: LIDODERM 5% PATCH TD PRN (12:30)
[2018-10-02 01:10] VITALS: BP 183/96
[2018-10-02 01:36] VITALS: BP 161/83
[2018-10-02 05:21] LABS: BASOPHILS # (AUTO) 0.04 x10^3/uL (0-0.1); BASOPHILS % (AUTO) 1 % (0-1); EOSINOPHILS # (AUTO) 0.28 x10^3/uL (0-0.4); EOSINOPHILS % (AUTO) 5 % (1-7); LYMPHOCYTES # (AUTO) 1.48 x10^3/uL (1-3.4); LYMPHOCYTES % (AUTO) 25 % (22-44); MD NO; MEAN CORPUSCULAR HGB CONC 31.7 g/dL (32.4-35.8); MEAN CORPUSCULAR VOLUME 85.2 fL (80-100); MEAN PLATELET VOLUME 7.9 fL (7.4-10.4); MONOCYTES # (AUTO) 0.45 x10^3/uL (0.2-0.8); MONOCYTES % (AUTO) 8 % (2-9); NEUTROPHILS % (AUTO) 62 % (42-75); PLATELET COUNT 280 x10^3/uL (130-400); RED BLOOD COUNT 4.43 x10^6/uL (3.82-5.3); RED CELL DISTRIBUTION WIDTH 17.1 % (9.6-15.2)
[2018-10-02 05:33] LABS: CHLORIDE 104 mmol/L (98-107)
[2018-10-02 05:41] LABS: ALANINE AMINOTRANSFERASE 14 U/L (12-78); ALBUMIN 3.2 g/dL (3.4-5.0); ALKALINE PHOSPHATASE 61 U/L (45-117); ANION GAP 7 mmol/L (5-15); BILIRUBIN,TOTAL 0.6 mg/dL (0.2-1.0); CALCIUM 9.7 mg/dL (8.5-10.1); CREATININE 0.81 mg/dL (0.55-1.02); TOTAL PROTEIN 7.9 g/dL (6.4-8.2)
[2018-10-02] MEDS: OMEPRAZOLE 20 MG CAPSULE.DR PO SCH (05:44)
[2018-10-02] MEDS: GUAIFENESIN 200 MG TABLET PO SCH ×2 (05:44→11:23)
[2018-10-02 07:21] VITALS: BP 176/93
[2018-10-02] MEDS ORDERED: SPIR25TA5 PO (08:27)
[2018-10-02] MEDS ORDERED: HYDR25TA6 PO (08:27)
[2018-10-02] MEDS ORDERED: AMOX1TAB12 PO (08:27)
[2018-10-02] MEDS ORDERED: GUAI200T3 PO (08:27)
[2018-10-02] MEDS ORDERED: HYDR-3343 PO (08:27)
[2018-10-02] MEDS ORDERED: DOXY100T PO (08:27)
[2018-10-02] MEDS ORDERED: CLON0.1T22 PO (08:29)
[2018-10-02] MEDS: ENOXAPARIN 40 MG/0.4 ML SQ SCH (08:49)
[2018-10-02] MEDS: DOXYCYCLINE 100MG TABLET PO SCH (08:50)
[2018-10-02] MEDS: INSULIN LISPRO 100 UNITS/ML, PEN SQ-INSULIN SCH ×2 (08:50→11:24)
[2018-10-02] MEDS: AMOXICILLIN/CLAV 875-125MG TABLET PO SCH (08:50)
[2018-10-02] MEDS: POTASSIUM CHLORIDE 20 MEQ TAB.ER.PRT PO SCH (08:50)
[2018-10-02] MEDS: SPIRONOLACTONE 25 MG TABLET PO SCH (08:51)
[2018-10-02] MEDS: METOPROLOL TARTRATE 25 MG TABLET PO SCH (08:51)
[2018-10-02] MEDS: HYDROCHLOROTHIAZIDE 25 MG TABLET PO SCH (08:51)
[2018-10-02] MEDS: LISINOPRIL 20 MG TABLET PO SCH (08:51)
[2018-10-02] MEDS: NICOTINE 7 MG/24 HR PATCH.TD24 TD SCH (08:52)
[2018-10-02] MEDS ORDERED: metFORMIN 500 MG TABLET PO SCH (09:00)
[2018-10-02] MEDS: FERROUS SULFATE 325 MG TABLET PO SCH (11:23)
== END 2018-10-02 11:50 | disposition home or self-care (01) | DRG 871 ==
LOC: ED 05:28 → EDIP 07:38 → 4EST 08:11 → DCLOUNGE 10-02 11:29
PROVIDERS: ADMIT Hospitalist; ATTEND Hospitalist
DX: A41.9 Sepsis, unspecified organism (principal); J15.9 Unspecified bacterial pneumonia; J96.01 Acute respiratory failure with hypoxia; Z68.41 Body mass index [BMI] 40.0-44.9, adult; E87.1 Hypo-osmolality and hyponatremia; I50.22 Chronic systolic (congestive) heart failure; J44.0 Chronic obstructive pulmonary disease with (acute) lower respiratory infection; I16.1 Hypertensive emergency; E11.65 Type 2 diabetes mellitus with hyperglycemia; E66.01 Morbid (severe) obesity due to excess calories; E78.5 Hyperlipidemia, unspecified; E86.1 Hypovolemia; E87.6 Hypokalemia; F17.200 Nicotine dependence, unspecified, uncomplicated; I11.0 Hypertensive heart disease with heart failure; I25.2 Old myocardial infarction; I27.20 Pulmonary hypertension, unspecified; R65.20 Severe sepsis without septic shock; Z79.899 Other long term (current) drug therapy; Z86.711 Personal history of pulmonary embolism; Z87.11 Personal history of peptic ulcer disease
CPT/HCPCS: 36415; 84145; 99291; J7613; 71045; 71275; 78582; 80053; 81003; 82962; 83036; 83605; 83880; 84484; 85025; 87040; 87070; 87205; 93005; 93975; 94640; 96365; 96375; 96376; G0378; J0456; J0696; J1650; J2405; J2543; J3370; J7060; Q9967; A9540; A9558; C9898; J0360; J1815; J2270; J7030; J7040; J7050

== ENCOUNTER 2019-03-04 14:02 | Emergency (ER) | payer MEDICAID ==
[~2019-03-04] VITALS: Ht 167.6 cm; Wt 130.0 kg
[~2019-03-04 14:02] MED LIST changes: +AMOX1TAB12 PO; +CLON0.1T22 PO; +DOXY100T PO; +GUAI200T37 PO; +HYDR-3343 PO; -METF750T2 PO; +METF750T42 PO; +SPIR25TA5 PO
--- NOTE | 2019-03-04 14:11 | NUR ---
PT WITH C/O FEELING LIGHTHEADED AND DIZZY FOR THE PAST 12HRS. PT BP ON ARRIVAL 208/85. PT DOES NOT BP AT HOME, PT STOPPED BP MEDICATIONS TWO MONTHS AGO. PT ALSO STATES SHE WAS CONTSIPATED FOR A FEW DAYS AND THEN HAD A LARGE BM YESTERDAY 03/03, SHE NOTICED SOME BRIGHT RED BLOOD IN STOOL BP MONITOR ON, CARD MONITOR, CONT PULSE OX
[2019-03-04] MEDS ORDERED: LABETALOL 5MG/ML, 20ML ONE (14:46)
--- NOTE | 2019-03-04 14:50 | NUR ---
PT MEDICATED PER MAR, LABS DRAWN. PT AMBULATED TO BR WITH STEADY GAIT.
[2019-03-04] MEDS ORDERED: LABETALOL 5MG/ML, 20ML IVPush ONE (15:00)
[2019-03-04 15:11] LABS: BASOPHILS # (AUTO) 0.03 x10^3/uL (0-0.1); BASOPHILS % (AUTO) 0 % (0-1); EOSINOPHILS # (AUTO) 0.19 x10^3/uL (0-0.4); EOSINOPHILS % (AUTO) 2 % (1-7); LYMPHOCYTES # (AUTO) 2.38 x10^3/uL (1-3.4); LYMPHOCYTES % (AUTO) 24 % (22-44); MD NO; MEAN CORPUSCULAR HEMOGLOBIN 28.2 pg (27.0-34.8); MEAN CORPUSCULAR HGB CONC 32.8 g/dL (32.4-35.8); MEAN PLATELET VOLUME 8.8 fL (7.4-10.4); MONOCYTES # (AUTO) 0.45 x10^3/uL (0.2-0.8); MONOCYTES % (AUTO) 5 % (2-9); NEUTROPHILS # (AUTO) 6.76 x10^3/uL (1.8-6.8); NEUTROPHILS % (AUTO) 69 % (42-75); PLATELET COUNT 239 x10^3/uL (130-400); RED BLOOD COUNT 5.61 x10^6/uL (3.82-5.3); RED CELL DISTRIBUTION WIDTH 17.8 % (9.6-15.2)
[2019-03-04 15:18] LABS: ALBUMIN 3.5 g/dL (3.4-5.0); ANION GAP 6 mmol/L (5-15); CALCIUM 9.1 mg/dL (8.5-10.1); CHLORIDE 106 mmol/L (98-107)
[2019-03-04 15:22] LABS: ALANINE AMINOTRANSFERASE 21 U/L (12-78); ALKALINE PHOSPHATASE 74 U/L (45-117); BILIRUBIN,TOTAL 0.5 mg/dL (0.2-1.0); TOTAL PROTEIN 8.1 g/dL (6.4-8.2)
[2019-03-04] MEDS ORDERED: hydrALAzine 20 MG/ML, 1ML IV ONE (15:30)
[2019-03-04] MEDS ORDERED: hydrALAzine 20 MG/ML, 1ML ONE (15:31)
--- NOTE | 2019-03-04 15:34 | NUR ---
PT BP BACK UP 223/98, MADE AWARE, ADDITIONAL ORDERS RECIEVED, PT MEDICATED PER MAR
--- NOTE | 2019-03-04 15:56 | NUR ---
PT TO IMAGING
[2019-03-04 15:59] VITALS: BP 177/78
== END 2019-03-04 16:48 | disposition home or self-care (01) ==
LOC: ED 16:26
DX: E11.65 Type 2 diabetes mellitus with hyperglycemia (principal); I10 Essential (primary) hypertension; R53.1 Weakness; R10.10 Upper abdominal pain, unspecified
CPT/HCPCS: 36415; 74021; 80053; 83690; 85025; 93005; 96374; 96375; 99284; J0360

== ENCOUNTER 2020-02-28 14:02 | Inpatient (IN) | payer MEDICAID ==
[~2020-02-28] VITALS: Ht 162.6 cm; Wt 135.0 kg
[~2020-02-28 14:02] MED LIST changes: +AMLO-211 PO; -AMLO10TA8 PO; +NIFE-6 PO; -NIFE60TA15 PO; -OXYC-432 PO; +OXYC1TAB18 PO
[2020-02-28] MEDS ORDERED: SODIUM CHLORIDE 0.9% 1,000 ML IV ONE (14:30)
[2020-02-28] MEDS ORDERED: SODIUM CHLORIDE FLUSH 10ML SYR IVF ONE (14:30)
[2020-02-28] MEDS ORDERED: ONDANSETRON 2MG/ML, 2ML IVPush ONE (14:30)
[2020-02-28] MEDS ORDERED: LABETALOL 20 MG/4 ML ONE (14:32)
--- NOTE | 2020-02-28 14:35 | NUR ---
NEURO CALLED BACK @[phone]
--- NOTE | 2020-02-28 14:36 | NUR ---
10mg ivp labetolol administered for hypertension
--- NOTE | 2020-02-28 14:38 | NUR ---
NEURO SURGERY CALLED @ [phone]
[2020-02-28 14:42] LABS: BASOPHILS % (AUTO) 1 % (0-1); EOSINOPHILS % (AUTO) 2 % (1-7); LYMPHOCYTES % (AUTO) 31 % (22-44); MEAN CORPUSCULAR HEMOGLOBIN 27.9 pg (27.0-34.8); MEAN CORPUSCULAR HGB CONC 32.4 g/dL (32.4-35.8); MEAN PLATELET VOLUME 8.9 fL (7.4-10.4); MONOCYTES % (AUTO) 5 % (2-9); NEUTROPHILS % (AUTO) 61 % (42-75); PLATELET COUNT 232 x10^3/uL (130-400); RED BLOOD COUNT 5.99 x10^6/uL (3.82-5.3); RED CELL DISTRIBUTION WIDTH 16.1 % (9.6-15.2)
[2020-02-28 14:45] LABS: MD NO
--- NOTE | 2020-02-28 14:45 | NUR ---
NEURO SURGERY CALLED BACK @[phone]
[2020-02-28] MEDS ORDERED: LABETALOL 5MG/ML, 20ML IVPush ONE (15:00)
--- NOTE | 2020-02-28 15:00 | NUR ---
Successful RSI by Dr. Vasquez for inability to protect airway
[2020-02-28 15:02] LABS: INTERNATIONAL NORMALIZED RATIO 0.99 (0.93-1.1); PROTHROMBIN TIME 10.5 Seconds (9.6-11.5)
[2020-02-28] MEDS: SODIUM CHLORIDE 0.9% 1,000 ML IV SCH (15:30)
[2020-02-28] MEDS ORDERED: MIDAZOLAM 1 MG/ML, 2ML IVPush ONE ×2 (15:30→16:00)
[2020-02-28] MEDS ORDERED: OXYcodone IR 5MG TABLET PO PRN (15:30)
[2020-02-28] MEDS ORDERED: SUCCINYLCHOLINE 20 MG/ML, 10ML IVPush ONE ×2 (15:30→17:00)
[2020-02-28] MEDS ORDERED: PROPOFOL 100 ML IV PRN (15:30)
[2020-02-28] MEDS ORDERED: ACETAMINOPHEN 325 MG TABLET PO PRN (15:30)
[2020-02-28] MEDS ORDERED: ONDANSETRON 2MG/ML, 2ML IVPush PRN (15:30)
[2020-02-28] MEDS ORDERED: BISACODYL 10 MG SUPP PR PRN (15:30)
[2020-02-28] MEDS ORDERED: morphine SULFATE 10 MG/ML, 1ML IVPush PRN (15:30)
[2020-02-28] MEDS ORDERED: ETOMIDATE 20 MG/10 ML IV ONE (15:30)
[2020-02-28] MEDS ORDERED: MANNITOL PMX 20% 500 ML ONE (15:38)
[2020-02-28] MEDS ORDERED: FUROSEMIDE 20 MG/2 ML ONE (15:39)
[2020-02-28] MEDS ORDERED: FENTANYL PF 250 MCG/5ML ONE (15:40)
[2020-02-28] MEDS ORDERED: BACITRACIN 50,000 UNIT ONE (15:54)
[2020-02-28] MEDS ORDERED: BACITRACIN OINT 500U/GM, 15 GM ONE (15:54)
[2020-02-28] MEDS ORDERED: THROMBIN 5,000 UNIT VIAL TP ONE (15:54)
[2020-02-28] MEDS ORDERED: BUPIVACAINE/PF 0.5% ONE (15:54)
[2020-02-28] MEDS ORDERED: INSULIN LISPRO 100 UNITS/ML, PEN SQ-INSULIN SCH (16:00)
[2020-02-28] MEDS ORDERED: OMNIPAQUE 350 MG/ML, 75ML BOTTLE ONE (16:06)
--- NOTE | 2020-02-28 16:06 | NUR ---
Right ij central line placed with 2 provider consent b/p down to 120/70 (presumed to be from additional sedation-just given 5 of versed as breathing over vent/moving extremities.) Nicardipine paused
[2020-02-28] MEDS ORDERED: PROPOFOL 50 ML ONE ×2 (16:09→17:34)
--- NOTE | 2020-02-28 16:15 | NUR ---
Post ett/cl chest xray at bedside
[2020-02-28] MEDS: LEVETIRACETAM 1,000 MG in SODIUM CHLORIDE 0.9% 100 ML IV SCH (16:20)
--- NOTE | 2020-02-28 16:35 | NUR ---
Family at bedside then Transported to OR
[2020-02-28] MEDS ORDERED: VASOPRESSIN 20 UNIT/ML, 1ML ONE (16:37)
[2020-02-28] MEDS ORDERED: PHENYLEPHRINE 10 MG/ML ONE (16:37)
[2020-02-28] MEDS ORDERED: NEOSTIGMINE 1 MG/ML, 10ML ONE (17:32)
[2020-02-28] MEDS ORDERED: PROPOFOL 10 MG/ML, 20ML ONE (17:32)
[2020-02-28] MEDS ORDERED: ROCURONIUM 10MG/ML,5ML ONE ×2 (17:32→17:58)
[2020-02-28] MEDS ORDERED: GLYCOPYRROLATE 0.2MG/1ML, 5ML ONE (17:32)
[2020-02-28] MEDS ORDERED: CEFAZOLIN 1,000 MG ONE (17:32)
[2020-02-28] MEDS ORDERED: INSULIN SINGLE DOSE, ER ONE (17:37)
[2020-02-28] MEDS ORDERED: BUPIVACAINE/PF-EPI 0.5% 1:200K INFIL ONE (17:52)
[2020-02-28] MEDS ORDERED: NEOSPORIN OINT, 15GM ONE (18:03)
[2020-02-28] MEDS ORDERED: HYDROmorphone 2 MG/ML, 1ML IV PRN (19:00)
[2020-02-28] MEDS ORDERED: DIPHENHYDRAMINE 50 MG/ML, 1ML IV PRN (19:00)
[2020-02-28] MEDS ORDERED: ONDANSETRON 2MG/ML, 2ML IV PRN (19:00)
[2020-02-28] MEDS ORDERED: LEVETIRACETAM 100 MG/ML, 5ML IV SCH (19:30)
[2020-02-28] MEDS ORDERED: LEVETIRACETAM 500 MG in SODIUM CHLORIDE 0.9% 100 ML IV SCH (19:30)
[2020-02-28] MEDS ORDERED: PHARMACY MAY ADJ FOR RENAL FX MC SCH (20:00)
[2020-02-28] MEDS: ENALAPRILAT 1.25 MG/ML, 2ML IVPush PRN ×2 (20:05→23:29)
[2020-02-28] MEDS: FAMOTIDINE 20 MG/2 ML IVPush SCH (20:05)
[2020-02-28] MEDS: INSULIN LISPRO 100 UNITS/ML, PEN SQ-INSULIN SCH (21:48)
[2020-02-29] MEDS: FENTANYL PF 100 MCG/2ML IVPush PRN (01:47)
[2020-02-29] MEDS: CEFAZOLIN PMX 1GM/50ML 50 ML IVPB SCH ×3 (02:25→17:51)
[2020-02-29 04:00] VITALS: BP 155/60
[2020-02-29] MEDS ORDERED: LEVETIRACETAM 500 MG in SODIUM CHLORIDE 0.9% 100 ML IV SCH (04:00)
[2020-02-29] MEDS: INSULIN LISPRO 100 UNITS/ML, PEN SQ-INSULIN SCH ×4 (04:27→20:13)
[2020-02-29] MEDS: LEVETIRACETAM 1,000 MG in SODIUM CHLORIDE 0.9% 100 ML IV SCH ×2 (04:34→14:26)
[2020-02-29 04:45] LABS: BASOPHILS % (AUTO) 0 % (0-1); EOSINOPHILS % (AUTO) 0 % (1-7); LYMPHOCYTES % (AUTO) 11 % (22-44); MEAN CORPUSCULAR HEMOGLOBIN 27.4 pg (27.0-34.8); MEAN CORPUSCULAR HGB CONC 31.8 g/dL (32.4-35.8); MEAN PLATELET VOLUME 8.8 fL (7.4-10.4); MONOCYTES % (AUTO) 6 % (2-9); NEUTROPHILS % (AUTO) 83 % (42-75); PLATELET COUNT 222 x10^3/uL (130-400); RED BLOOD COUNT 5.02 x10^6/uL (3.82-5.3); RED CELL DISTRIBUTION WIDTH 16.3 % (9.6-15.2)
[2020-02-29 04:51] LABS: MD NO
[2020-02-29 04:55] LABS: ALBUMIN 3.2 g/dL (3.4-5.0); ANION GAP 5 mmol/L (5-15); CALCIUM 8.3 mg/dL (8.5-10.1); CHLORIDE 108 mmol/L (98-107)
[2020-02-29 04:59] LABS: ALANINE AMINOTRANSFERASE 18 U/L (12-78); ALKALINE PHOSPHATASE 70 U/L (45-117); BILIRUBIN,TOTAL 0.8 mg/dL (0.2-1.0); CREATININE 1.02 mg/dL (0.55-1.02); TOTAL PROTEIN 7.1 g/dL (6.4-8.2)
[2020-02-29] MEDS ORDERED: MAGNESIUM SULFATE PMX 2GM/50ML 50 ML IV ONE ×2 (06:00→07:00)
[2020-02-29] MEDS: ENALAPRILAT 1.25 MG/ML, 2ML IVPush PRN (06:28)
[2020-02-29] MEDS: SPIRONOLACTONE 25 MG TABLET PO SCH (09:51)
[2020-02-29] MEDS: FAMOTIDINE 20 MG/2 ML IVPush SCH ×2 (09:51→20:06)
[2020-02-29] MEDS: SENNA/DOCUSATE TABLET PO SCH (09:51)
[2020-02-29] MEDS: LISINOPRIL 40 MG TABLET PO SCH ×2 (09:51→20:06)
[2020-02-29] MEDS: INSULIN GLARGINE 100 UNITS/ML, PEN SQ-INSULIN SCH ×2 (10:02→20:13)
[2020-02-29] MEDS: SODIUM CHLORIDE 0.9% 1,000 ML IV SCH (11:11)
--- NOTE | 2020-02-29 13:08 | NUR ---
TF recommendations vital HP full goal 65 ml/hr
[2020-03-01] MEDS: ENALAPRILAT 1.25 MG/ML, 2ML IVPush PRN ×5 (01:17→16:21)
[2020-03-01] MEDS: SODIUM CHLORIDE 0.9% 1,000 ML IV SCH ×2 (03:01→15:50)
[2020-03-01] MEDS: CEFAZOLIN PMX 1GM/50ML 50 ML IVPB SCH ×3 (03:04→18:46)
[2020-03-01] MEDS: FENTANYL PF 100 MCG/2ML IVPush PRN ×4 (03:18→22:52)
[2020-03-01] MEDS: LEVETIRACETAM 1,000 MG in SODIUM CHLORIDE 0.9% 100 ML IV SCH ×2 (03:49→15:50)
[2020-03-01] MEDS: INSULIN LISPRO 100 UNITS/ML, PEN SQ-INSULIN SCH ×4 (03:50→21:36)
[2020-03-01 04:18] LABS: BASOPHILS % (AUTO) 0 % (0-1); EOSINOPHILS % (AUTO) 0 % (1-7); LYMPHOCYTES % (AUTO) 10 % (22-44); MEAN CORPUSCULAR HEMOGLOBIN 27.9 pg (27.0-34.8); MEAN CORPUSCULAR HGB CONC 32.1 g/dL (32.4-35.8); MONOCYTES % (AUTO) 6 % (2-9); NEUTROPHILS % (AUTO) 83 % (42-75); PLATELET COUNT 204 x10^3/uL (130-400); RED BLOOD COUNT 4.42 x10^6/uL (3.82-5.3); RED CELL DISTRIBUTION WIDTH 16.2 % (9.6-15.2)
[2020-03-01 04:27] VITALS: BP 160/55
[2020-03-01 04:46] LABS: MD SCAN
[2020-03-01] MEDS: SPIRONOLACTONE 25 MG TABLET PO SCH (07:53)
[2020-03-01] MEDS: SENNA/DOCUSATE TABLET PO SCH (07:53)
[2020-03-01] MEDS: FAMOTIDINE 20 MG/2 ML IVPush SCH ×2 (07:53→21:24)
[2020-03-01] MEDS: LISINOPRIL 40 MG TABLET PO SCH ×2 (07:53→21:23)
[2020-03-01] MEDS: INSULIN GLARGINE 100 UNITS/ML, PEN SQ-INSULIN SCH ×2 (08:26→21:35)
[2020-03-01 08:33] LABS: ANION GAP 5 mmol/L (5-15); CALCIUM 8.2 mg/dL (8.5-10.1); CHLORIDE 111 mmol/L (98-107); CREATININE 0.95 mg/dL (0.55-1.02)
[2020-03-02] MEDS: FENTANYL PF 100 MCG/2ML IVPush PRN ×3 (02:29→21:52)
[2020-03-02] MEDS: CEFAZOLIN PMX 1GM/50ML 50 ML IVPB SCH ×3 (02:51→19:52)
[2020-03-02] MEDS: LABETALOL 5MG/ML, 20ML IVPush PRN ×2 (03:12→21:57)
[2020-03-02] MEDS: LEVETIRACETAM 1,000 MG in SODIUM CHLORIDE 0.9% 100 ML IV SCH ×2 (03:37→15:26)
[2020-03-02] MEDS: INSULIN LISPRO 100 UNITS/ML, PEN SQ-INSULIN SCH ×4 (04:52→21:39)
[2020-03-02 05:10] LABS: BASOPHILS % (AUTO) 0 % (0-1); EOSINOPHILS % (AUTO) 0 % (1-7); LYMPHOCYTES % (AUTO) 8 % (22-44); MEAN CORPUSCULAR HEMOGLOBIN 27.7 pg (27.0-34.8); MEAN CORPUSCULAR HGB CONC 31.6 g/dL (32.4-35.8); MEAN PLATELET VOLUME 9.2 fL (7.4-10.4); MONOCYTES % (AUTO) 8 % (2-9); NEUTROPHILS % (AUTO) 84 % (42-75); PLATELET COUNT 185 x10^3/uL (130-400); RED BLOOD COUNT 4.23 x10^6/uL (3.82-5.3); RED CELL DISTRIBUTION WIDTH 16.5 % (9.6-15.2)
[2020-03-02 05:19] LABS: MD NO
[2020-03-02] MEDS: SODIUM CHLORIDE 0.9% 1,000 ML IV SCH (06:09)
[2020-03-02] MEDS: SPIRONOLACTONE 25 MG TABLET PO SCH (09:02)
[2020-03-02] MEDS: LISINOPRIL 40 MG TABLET PO SCH (09:02)
[2020-03-02] MEDS: FAMOTIDINE 20 MG/2 ML IVPush SCH ×2 (09:03→21:15)
[2020-03-02] MEDS: SENNA/DOCUSATE TABLET PO SCH (09:03)
[2020-03-02] MEDS: INSULIN GLARGINE 100 UNITS/ML, PEN SQ-INSULIN SCH ×2 (09:04→21:41)
[2020-03-02 09:26] LABS: ANION GAP 4 mmol/L (5-15); CHLORIDE 113 mmol/L (98-107)
[2020-03-02 09:27] LABS: CALCIUM 8.3 mg/dL (8.5-10.1)
[2020-03-02 09:29] LABS: CREATININE 0.89 mg/dL (0.55-1.02)
[2020-03-02] MEDS: ALBUTEROL/IPRATROPIUM 2.5MG/0.5MG, 3 ML NPPB SCH ×4 (10:02→22:45)
[2020-03-02] MEDS: MIDAZOLAM 1 MG/ML, 2ML IVPush PRN (12:30)
[2020-03-03] MEDS: FENTANYL PF 100 MCG/2ML IVPush PRN ×7 (02:04→23:05)
[2020-03-03] MEDS: CEFAZOLIN PMX 1GM/50ML 50 ML IVPB SCH ×2 (02:32→10:52)
[2020-03-03] MEDS: ALBUTEROL/IPRATROPIUM 2.5MG/0.5MG, 3 ML NPPB SCH ×6 (02:54→22:18)
[2020-03-03] MEDS: LEVETIRACETAM 1,000 MG in SODIUM CHLORIDE 0.9% 100 ML IV SCH ×2 (03:26→15:43)
[2020-03-03] MEDS: INSULIN LISPRO 100 UNITS/ML, PEN SQ-INSULIN SCH ×4 (03:47→21:46)
[2020-03-03] MEDS: POLYETHYLENE GLYCOL 17 GM PACKET PO PRN (04:07)
[2020-03-03 04:41] LABS: BASOPHILS % (AUTO) 0 % (0-1); EOSINOPHILS % (AUTO) 1 % (1-7); LYMPHOCYTES % (AUTO) 14 % (22-44); MEAN CORPUSCULAR HEMOGLOBIN 28.2 pg (27.0-34.8); MEAN CORPUSCULAR HGB CONC 32.4 g/dL (32.4-35.8); MEAN PLATELET VOLUME 9.1 fL (7.4-10.4); MONOCYTES % (AUTO) 9 % (2-9); NEUTROPHILS % (AUTO) 76 % (42-75); PLATELET COUNT 165 x10^3/uL (130-400); RED BLOOD COUNT 3.91 x10^6/uL (3.82-5.3); RED CELL DISTRIBUTION WIDTH 16.6 % (9.6-15.2)
[2020-03-03 04:43] LABS: MD NO
[2020-03-03] MEDS: SPIRONOLACTONE 25 MG TABLET PO SCH (08:05)
[2020-03-03] MEDS: LISINOPRIL 40 MG TABLET PO SCH (08:05)
[2020-03-03] MEDS: SENNA/DOCUSATE TABLET PO SCH (08:05)
[2020-03-03] MEDS: FAMOTIDINE 20 MG/2 ML IVPush SCH ×2 (08:05→20:28)
[2020-03-03] MEDS: LABETALOL 5MG/ML, 20ML IVPush PRN (08:20)
[2020-03-03] MEDS: MIDAZOLAM 1 MG/ML, 2ML IVPush PRN ×4 (09:20→23:05)
[2020-03-03] MEDS: INSULIN GLARGINE 100 UNITS/ML, PEN SQ-INSULIN SCH ×2 (09:21→21:46)
[2020-03-03] MEDS: LIDOCAINE-MPF 1%, 2ML ENDO PRN ×3 (09:35→17:42)
[2020-03-03 10:31] LABS: ANION GAP 3 mmol/L (5-15); CHLORIDE 113 mmol/L (98-107)
[2020-03-03 10:34] LABS: CALCIUM 8.9 mg/dL (8.5-10.1); CREATININE 0.74 mg/dL (0.55-1.02)
[2020-03-03] MEDS: ENALAPRILAT 1.25 MG/ML, 2ML IVPush PRN (11:23)
[2020-03-03] MEDS: AMLODIPINE 5 MG TABLET PO SCH ×2 (14:15→20:27)
[2020-03-03] MEDS: hydrALAzine 20 MG/ML, 1ML IV PRN (16:21)
[2020-03-04] MEDS: MIDAZOLAM 1 MG/ML, 2ML IVPush PRN ×6 (00:57→12:39)
[2020-03-04] MEDS: FENTANYL PF 100 MCG/2ML IVPush PRN ×6 (00:57→20:34)
[2020-03-04] MEDS: ALBUTEROL/IPRATROPIUM 2.5MG/0.5MG, 3 ML NPPB SCH ×6 (02:16→22:56)
[2020-03-04] MEDS: POLYETHYLENE GLYCOL 17 GM PACKET PO PRN (03:23)
[2020-03-04] MEDS: LEVETIRACETAM 1,000 MG in SODIUM CHLORIDE 0.9% 100 ML IV SCH ×2 (03:23→13:47)
[2020-03-04] MEDS: hydrALAzine 20 MG/ML, 1ML IV PRN (03:24)
[2020-03-04] MEDS: INSULIN LISPRO 100 UNITS/ML, PEN SQ-INSULIN SCH ×4 (03:37→21:31)
[2020-03-04 04:42] LABS: BASOPHILS % (AUTO) 1 % (0-1); EOSINOPHILS % (AUTO) 3 % (1-7); LYMPHOCYTES % (AUTO) 15 % (22-44); MEAN CORPUSCULAR HEMOGLOBIN 28.6 pg (27.0-34.8); MEAN CORPUSCULAR HGB CONC 32.7 g/dL (32.4-35.8); MEAN PLATELET VOLUME 9.4 fL (7.4-10.4); MONOCYTES % (AUTO) 8 % (2-9); NEUTROPHILS % (AUTO) 74 % (42-75); PLATELET COUNT 170 x10^3/uL (130-400); RED BLOOD COUNT 3.89 x10^6/uL (3.82-5.3); RED CELL DISTRIBUTION WIDTH 16.3 % (9.6-15.2)
[2020-03-04 04:43] LABS: ANION GAP 4 mmol/L (5-15); CHLORIDE 111 mmol/L (98-107)
[2020-03-04 04:45] LABS: MD NO
[2020-03-04 04:46] LABS: CREATININE 0.74 mg/dL (0.55-1.02)
[2020-03-04] MEDS: ENALAPRILAT 1.25 MG/ML, 2ML IVPush PRN ×2 (04:55→09:55)
[2020-03-04 06:06] LABS: ALBUMIN 2.3 g/dL (3.4-5.0); BILIRUBIN, DIRECT 0.4 mg/dL (0.1-0.2)
[2020-03-04 06:14] LABS: BILIRUBIN,INDIRECT 0.6 mg/dL (0.0-2.0); TOTAL PROTEIN 6.7 g/dL (6.4-8.2)
[2020-03-04] MEDS: SENNA/DOCUSATE TABLET PO SCH (08:00)
[2020-03-04] MEDS: FAMOTIDINE 20 MG/2 ML IVPush SCH ×2 (08:01→20:38)
[2020-03-04] MEDS: AMLODIPINE 5 MG TABLET PO SCH ×2 (08:01→20:39)
[2020-03-04] MEDS: LISINOPRIL 40 MG TABLET PO SCH (08:01)
[2020-03-04] MEDS: INSULIN GLARGINE 100 UNITS/ML, PEN SQ-INSULIN SCH ×2 (09:52→21:31)
[2020-03-04] MEDS: HYDROcodone/APAP 5/325 TABLET PO PRN ×2 (09:52→20:39)
[2020-03-04] MEDS ORDERED: MAGNESIUM SULFATE PMX 2GM/50ML 50 ML ONE (12:34)
[2020-03-04] MEDS ORDERED: MAGNESIUM SULFATE PMX 2GM/50ML 50 ML IV ONE (13:00)
[2020-03-04] MEDS ORDERED: AMIODARONE 150 MG in DEXTROSE 5% 100 ML IV ONE ×2 (13:00→13:30)
[2020-03-04] MEDS ORDERED: PROPOFOL 100 ML IV ONE (13:25)
[2020-03-04] MEDS: PROPOFOL 100 ML IV PRN ×3 (13:31→20:24)
[2020-03-04] MEDS: AMIODARONE 450 MG in DEXTROSE 5% 241 ML IV PRN (13:47)
[2020-03-05] MEDS: PROPOFOL 100 ML IV PRN ×4 (01:38→12:16)
[2020-03-05] MEDS: AMIODARONE 450 MG in DEXTROSE 5% 241 ML IV PRN (01:39)
[2020-03-05] MEDS: FILTER 0.22 MICRON IV PRN (01:45)
[2020-03-05] MEDS: HYDROcodone/APAP 5/325 TABLET PO PRN ×3 (02:53→15:07)
[2020-03-05] MEDS: ALBUTEROL/IPRATROPIUM 2.5MG/0.5MG, 3 ML NPPB SCH ×6 (03:00→22:26)
[2020-03-05] MEDS: LIDOCAINE-MPF 1%, 2ML ENDO PRN (03:15)
[2020-03-05] MEDS: LEVETIRACETAM 1,000 MG in SODIUM CHLORIDE 0.9% 100 ML IV SCH ×2 (03:33→15:06)
[2020-03-05] MEDS: INSULIN LISPRO 100 UNITS/ML, PEN SQ-INSULIN SCH ×4 (03:33→21:08)
[2020-03-05 04:18] LABS: BASOPHILS % (AUTO) 1 % (0-1); EOSINOPHILS % (AUTO) 3 % (1-7); LYMPHOCYTES % (AUTO) 11 % (22-44); MEAN CORPUSCULAR HGB CONC 32.4 g/dL (32.4-35.8); MEAN PLATELET VOLUME 9.2 fL (7.4-10.4); MONOCYTES % (AUTO) 8 % (2-9); NEUTROPHILS % (AUTO) 78 % (42-75); PLATELET COUNT 217 x10^3/uL (130-400); RED BLOOD COUNT 4.09 x10^6/uL (3.82-5.3)
[2020-03-05 04:22] LABS: ANION GAP 4 mmol/L (5-15); CALCIUM 8.7 mg/dL (8.5-10.1); CHLORIDE 108 mmol/L (98-107); CREATININE 0.67 mg/dL (0.55-1.02)
[2020-03-05 04:23] LABS: MD NO
[2020-03-05] MEDS: FENTANYL PF 100 MCG/2ML IVPush PRN (06:30)
[2020-03-05 08:42] LABS: ALBUMIN 2.4 g/dL (3.4-5.0); BILIRUBIN, DIRECT 0.8 mg/dL (0.1-0.2)
[2020-03-05 08:45] LABS: BILIRUBIN,INDIRECT 0.8 mg/dL (0.0-2.0); BILIRUBIN,TOTAL 1.6 mg/dL (0.2-1.0); TOTAL PROTEIN 7.2 g/dL (6.4-8.2)
[2020-03-05] MEDS: FAMOTIDINE 20 MG/2 ML IVPush SCH ×2 (08:50→20:22)
[2020-03-05] MEDS: AMLODIPINE 5 MG TABLET PO SCH ×2 (08:50→20:21)
[2020-03-05] MEDS: SENNA/DOCUSATE TABLET PO SCH (08:51)
[2020-03-05] MEDS: POLYETHYLENE GLYCOL 17 GM PACKET PO PRN (08:52)
[2020-03-05] MEDS: LISINOPRIL 40 MG TABLET PO SCH (08:52)
[2020-03-05] MEDS ORDERED: SCOPOLAMINE PATCH, 1.5MG PATCH.TD72 TD PRN (09:30)
[2020-03-05] MEDS ORDERED: SCOPOLAMINE 1MG PATCH TD PRN (09:39)
[2020-03-05] MEDS: INSULIN GLARGINE 100 UNITS/ML, PEN SQ-INSULIN SCH ×2 (09:44→21:08)
[2020-03-05] MEDS: CEFEPIME 2 GM in DEXTROSE 5% 100 ML IV SCH (19:00)
[2020-03-06] MEDS: CEFEPIME 2 GM in DEXTROSE 5% 100 ML IV SCH (02:04)
[2020-03-06] MEDS: ALBUTEROL/IPRATROPIUM 2.5MG/0.5MG, 3 ML NPPB SCH ×6 (02:38→23:10)
[2020-03-06] MEDS: LEVETIRACETAM 1,000 MG in SODIUM CHLORIDE 0.9% 100 ML IV SCH ×2 (03:07→15:24)
[2020-03-06] MEDS: INSULIN LISPRO 100 UNITS/ML, PEN SQ-INSULIN SCH ×4 (04:00→21:45)
[2020-03-06 04:34] LABS: FIO2 38.1 %
[2020-03-06 05:05] LABS: BASOPHILS % (AUTO) 0 % (0-1); EOSINOPHILS % (AUTO) 3 % (1-7); LYMPHOCYTES % (AUTO) 10 % (22-44); MEAN CORPUSCULAR HEMOGLOBIN 28.3 pg (27.0-34.8); MEAN CORPUSCULAR HGB CONC 32.5 g/dL (32.4-35.8); MEAN PLATELET VOLUME 9.1 fL (7.4-10.4); MONOCYTES % (AUTO) 9 % (2-9); NEUTROPHILS % (AUTO) 79 % (42-75); PLATELET COUNT 236 x10^3/uL (130-400); RED BLOOD COUNT 3.97 x10^6/uL (3.82-5.3); RED CELL DISTRIBUTION WIDTH 16.2 % (9.6-15.2)
[2020-03-06 05:17] LABS: MD NO
[2020-03-06 05:18] LABS: ANION GAP 5 mmol/L (5-15); CALCIUM 9.2 mg/dL (8.5-10.1); CHLORIDE 111 mmol/L (98-107)
[2020-03-06 05:19] LABS: CREATININE 0.72 mg/dL (0.55-1.02)
[2020-03-06] MEDS: AMIODARONE 450 MG in DEXTROSE 5% 241 ML IV PRN (06:04)
[2020-03-06] MEDS: PROPOFOL 100 ML IV PRN ×2 (06:04→21:34)
[2020-03-06] MEDS: FILTER 0.22 MICRON IV PRN (06:05)
[2020-03-06] MEDS: hydrALAzine 20 MG/ML, 1ML IV PRN ×2 (06:34→23:11)
[2020-03-06 06:50] LABS: BILIRUBIN, DIRECT 0.8 mg/dL (0.1-0.2); BILIRUBIN,INDIRECT 0.5 mg/dL (0.0-2.0); BILIRUBIN,TOTAL 1.3 mg/dL (0.2-1.0)
[2020-03-06] MEDS: AMLODIPINE 5 MG TABLET PO SCH ×2 (08:20→21:09)
[2020-03-06] MEDS: SENNA/DOCUSATE TABLET PO SCH (08:20)
[2020-03-06] MEDS: LISINOPRIL 40 MG TABLET PO SCH (08:21)
[2020-03-06] MEDS: HYDROcodone/APAP 5/325 TABLET PO PRN ×2 (08:21→21:16)
[2020-03-06] MEDS: POLYETHYLENE GLYCOL 17 GM PACKET PO PRN (08:21)
[2020-03-06] MEDS: FAMOTIDINE 20 MG/2 ML IVPush SCH ×2 (08:21→21:09)
[2020-03-06] MEDS: INSULIN GLARGINE 100 UNITS/ML, PEN SQ-INSULIN SCH ×2 (08:22→21:44)
[2020-03-06] MEDS: GLYCOPYRROLATE 0.4 MG/2 ML, 2ML IV SCH ×2 (10:05→22:14)
[2020-03-06] MEDS: AMIODARONE 200 MG TABLET PO SCH ×2 (10:05→21:09)
[2020-03-06] MEDS ORDERED: SENNA/DOCUSATE TABLET PO PRN (10:30)
[2020-03-06] MEDS ORDERED: LACTULOSE 20 GM/30 ML UDC PO PRN (10:30)
[2020-03-06] MEDS ORDERED: POLYETHYLENE GLYCOL 17 GM PACKET PO PRN (10:30)
[2020-03-06] MEDS ORDERED: BISACODYL 10 MG SUPP PR PRN (10:30)
[2020-03-06] MEDS: DOCUSATE 50 MG/5 ML, 10ML UDC PO SCH (10:48)
[2020-03-07] MEDS: PROPOFOL 100 ML IV PRN ×8 (00:28→22:26)
[2020-03-07] MEDS: FENTANYL PF 100 MCG/2ML IVPush PRN (01:09)
[2020-03-07] MEDS: LORazepam 2 MG/ML, 1ML IVPush PRN ×2 (01:09→05:37)
[2020-03-07] MEDS: LEVETIRACETAM 1,000 MG in SODIUM CHLORIDE 0.9% 100 ML IV SCH ×2 (03:14→16:09)
[2020-03-07] MEDS: ALBUTEROL/IPRATROPIUM 2.5MG/0.5MG, 3 ML NPPB SCH ×6 (03:28→23:15)
[2020-03-07] MEDS: INSULIN LISPRO 100 UNITS/ML, PEN SQ-INSULIN SCH ×4 (04:14→22:02)
[2020-03-07 04:36] LABS: ANION GAP 8 mmol/L (5-15); BASOPHILS % (AUTO) 0 % (0-1); CALCIUM 8.9 mg/dL (8.5-10.1); CHLORIDE 113 mmol/L (98-107); CREATININE 0.77 mg/dL (0.55-1.02); EOSINOPHILS % (AUTO) 2 % (1-7); LYMPHOCYTES % (AUTO) 13 % (22-44); MEAN CORPUSCULAR HEMOGLOBIN 27.9 pg (27.0-34.8); MEAN CORPUSCULAR HGB CONC 32.3 g/dL (32.4-35.8); MEAN PLATELET VOLUME 9.2 fL (7.4-10.4); MONOCYTES % (AUTO) 8 % (2-9); NEUTROPHILS % (AUTO) 76 % (42-75); PLATELET COUNT 256 x10^3/uL (130-400); RED CELL DISTRIBUTION WIDTH 16.2 % (9.6-15.2)
[2020-03-07 04:39] LABS: MD NO
[2020-03-07] MEDS: HYDROcodone/APAP 5/325 TABLET PO PRN ×2 (05:57→09:09)
[2020-03-07] MEDS: INSULIN GLARGINE 100 UNITS/ML, PEN SQ-INSULIN SCH (09:05)
[2020-03-07] MEDS: LISINOPRIL 40 MG TABLET PO SCH (09:07)
[2020-03-07] MEDS: AMIODARONE 200 MG TABLET PO SCH ×2 (09:08→19:32)
[2020-03-07] MEDS: SENNA/DOCUSATE TABLET PO SCH (09:08)
[2020-03-07] MEDS: AMLODIPINE 5 MG TABLET PO SCH ×2 (09:08→19:33)
[2020-03-07] MEDS: DOCUSATE 50 MG/5 ML, 10ML UDC PO SCH (09:10)
[2020-03-07] MEDS: FAMOTIDINE 20 MG/2 ML IVPush SCH ×2 (09:10→19:32)
[2020-03-07] MEDS: GLYCOPYRROLATE 0.4 MG/2 ML, 2ML IV SCH ×2 (10:24→22:02)
[2020-03-07] MEDS: AMPICILLIN/SULBACTAM 3 GM in SODIUM CHLORIDE 0.9% 100 ML IV SCH ×3 (11:35→23:11)
[2020-03-08] MEDS: PROPOFOL 100 ML IV PRN ×6 (01:50→22:13)
[2020-03-08] MEDS: ALBUTEROL/IPRATROPIUM 2.5MG/0.5MG, 3 ML NPPB SCH ×6 (03:15→22:30)
[2020-03-08] MEDS: LEVETIRACETAM 1,000 MG in SODIUM CHLORIDE 0.9% 100 ML IV SCH ×2 (04:02→15:34)
[2020-03-08] MEDS: INSULIN LISPRO 100 UNITS/ML, PEN SQ-INSULIN SCH ×4 (04:06→22:13)
[2020-03-08 04:24] LABS: BASOPHILS % (AUTO) 1 % (0-1); EOSINOPHILS % (AUTO) 3 % (1-7); LYMPHOCYTES % (AUTO) 9 % (22-44); MEAN CORPUSCULAR HEMOGLOBIN 27.7 pg (27.0-34.8); MONOCYTES % (AUTO) 9 % (2-9); NEUTROPHILS % (AUTO) 79 % (42-75); PLATELET COUNT 269 x10^3/uL (130-400); RED BLOOD COUNT 3.91 x10^6/uL (3.82-5.3); RED CELL DISTRIBUTION WIDTH 15.8 % (9.6-15.2)
[2020-03-08 04:26] LABS: MD NO
[2020-03-08 04:34] LABS: CALCIUM 8.8 mg/dL (8.5-10.1); CHLORIDE 111 mmol/L (98-107); CREATININE 0.62 mg/dL (0.55-1.02)
[2020-03-08] MEDS: AMPICILLIN/SULBACTAM 3 GM in SODIUM CHLORIDE 0.9% 100 ML IV SCH ×4 (04:58→23:06)
[2020-03-08 05:04] LABS: ANION GAP 8 mmol/L (5-15)
[2020-03-08] MEDS: AMIODARONE 200 MG TABLET PO SCH ×2 (08:53→19:40)
[2020-03-08] MEDS: DOCUSATE 50 MG/5 ML, 10ML UDC PO SCH (08:53)
[2020-03-08] MEDS: FAMOTIDINE 20 MG/2 ML IVPush SCH ×2 (08:53→19:40)
[2020-03-08] MEDS: LISINOPRIL 40 MG TABLET PO SCH (08:54)
[2020-03-08] MEDS: AMLODIPINE 5 MG TABLET PO SCH ×2 (08:54→19:40)
[2020-03-08] MEDS: SENNA/DOCUSATE TABLET PO SCH (08:54)
[2020-03-08] MEDS: GLYCOPYRROLATE 0.4 MG/2 ML, 2ML IV SCH ×2 (10:08→22:43)
[2020-03-09] MEDS: PROPOFOL 100 ML IV PRN ×6 (01:55→22:13)
[2020-03-09] MEDS: ALBUTEROL/IPRATROPIUM 2.5MG/0.5MG, 3 ML NPPB SCH ×6 (02:20→23:00)
[2020-03-09] MEDS: INSULIN LISPRO 100 UNITS/ML, PEN SQ-INSULIN SCH ×4 (03:17→21:47)
[2020-03-09] MEDS: LEVETIRACETAM 1,000 MG in SODIUM CHLORIDE 0.9% 100 ML IV SCH ×2 (03:17→15:41)
[2020-03-09 04:49] LABS: BASOPHILS % (AUTO) 1 % (0-1); EOSINOPHILS % (AUTO) 3 % (1-7); LYMPHOCYTES % (AUTO) 11 % (22-44); MEAN CORPUSCULAR HEMOGLOBIN 27.8 pg (27.0-34.8); MEAN PLATELET VOLUME 8.7 fL (7.4-10.4); MONOCYTES % (AUTO) 9 % (2-9); NEUTROPHILS % (AUTO) 76 % (42-75); PLATELET COUNT 287 x10^3/uL (130-400); RED BLOOD COUNT 3.77 x10^6/uL (3.82-5.3); RED CELL DISTRIBUTION WIDTH 15.8 % (9.6-15.2)
[2020-03-09 04:53] LABS: MD NO
[2020-03-09 04:59] LABS: ANION GAP 6 mmol/L (5-15); CALCIUM 8.6 mg/dL (8.5-10.1); CHLORIDE 112 mmol/L (98-107); CREATININE 0.53 mg/dL (0.55-1.02)
[2020-03-09] MEDS: AMPICILLIN/SULBACTAM 3 GM in SODIUM CHLORIDE 0.9% 100 ML IV SCH ×4 (05:09→23:39)
[2020-03-09] MEDS: AMIODARONE 200 MG TABLET PO SCH ×2 (08:34→21:46)
[2020-03-09] MEDS: DOCUSATE 50 MG/5 ML, 10ML UDC PO SCH (08:34)
[2020-03-09] MEDS: AMLODIPINE 5 MG TABLET PO SCH ×2 (08:34→21:46)
[2020-03-09] MEDS: LISINOPRIL 40 MG TABLET PO SCH (08:35)
[2020-03-09] MEDS: SENNA/DOCUSATE TABLET PO SCH (08:35)
[2020-03-09] MEDS: FAMOTIDINE 20 MG/2 ML IVPush SCH ×2 (08:36→21:46)
[2020-03-09] MEDS: FENTANYL PF 100 MCG/2ML IVPush PRN ×2 (09:02→13:28)
[2020-03-09 14:30] LABS: MICROSCOPIC INDICATED
[2020-03-09] MEDS: LIDOCAINE-MPF 1%, 2ML ENDO PRN (22:55)
[2020-03-10] MEDS: PROPOFOL 100 ML IV PRN ×4 (01:41→09:45)
[2020-03-10] MEDS: ALBUTEROL/IPRATROPIUM 2.5MG/0.5MG, 3 ML NPPB SCH ×3 (02:52→10:10)
[2020-03-10] MEDS: LEVETIRACETAM 1,000 MG in SODIUM CHLORIDE 0.9% 100 ML IV SCH (03:40)
[2020-03-10] MEDS: INSULIN LISPRO 100 UNITS/ML, PEN SQ-INSULIN SCH ×2 (04:15→10:00)
[2020-03-10 05:19] LABS: BASOPHILS % (AUTO) 1 % (0-1); EOSINOPHILS % (AUTO) 3 % (1-7); LYMPHOCYTES % (AUTO) 14 % (22-44); MEAN CORPUSCULAR HGB CONC 32.4 g/dL (32.4-35.8); MEAN PLATELET VOLUME 8.6 fL (7.4-10.4); MONOCYTES % (AUTO) 8 % (2-9); NEUTROPHILS % (AUTO) 74 % (42-75); PLATELET COUNT 304 x10^3/uL (130-400); RED BLOOD COUNT 3.75 x10^6/uL (3.82-5.3); RED CELL DISTRIBUTION WIDTH 15.8 % (9.6-15.2)
[2020-03-10 05:23] LABS: MD NO
[2020-03-10] MEDS: AMPICILLIN/SULBACTAM 3 GM in SODIUM CHLORIDE 0.9% 100 ML IV SCH ×2 (05:37→11:32)
[2020-03-10] MEDS: DOCUSATE 50 MG/5 ML, 10ML UDC PO SCH (08:43)
[2020-03-10] MEDS: AMIODARONE 200 MG TABLET PO SCH (08:44)
[2020-03-10] MEDS: SENNA/DOCUSATE TABLET PO SCH (08:44)
[2020-03-10] MEDS: LISINOPRIL 40 MG TABLET PO SCH (08:44)
[2020-03-10] MEDS: FAMOTIDINE 20 MG/2 ML IVPush SCH (08:44)
[2020-03-10] MEDS: AMLODIPINE 5 MG TABLET PO SCH (08:44)
[2020-03-10] MEDS: FENTANYL PF 100 MCG/2ML IVPush PRN (10:20)
[2020-03-10] MEDS ORDERED: PROPOFOL 100 ML IV ONE (14:37)
[2020-03-10] MEDS ORDERED: ONDANSETRON 2MG/ML, 2ML IV PRN (15:00)
[2020-03-10] MEDS ORDERED: LORazepam 2 MG/ML, 1ML IV ONE (15:00)
[2020-03-10] MEDS ORDERED: SCOPOLAMINE 1MG PATCH TD PRN (15:00)
[2020-03-10] MEDS ORDERED: SCOPOLAMINE PATCH, 1.5MG PATCH.TD72 TD PRN (15:00)
[2020-03-10] MEDS ORDERED: MORPHINE SULFATE 4 MG/ML, 1ML IV ONE (15:00)
[2020-03-10] MEDS: ATROPINE OPHTH SOLN 1%, 5ML PO PRN ×3 (16:01→22:43)
[2020-03-10] MEDS: MORPHINE SULFATE 4 MG/ML, 1ML IV PRN ×3 (16:15→22:03)
[2020-03-10] MEDS: LORazepam 2 MG/ML, 1ML IV PRN ×3 (16:15→22:03)
[2020-03-10] MEDS: SODIUM CHLORIDE FLUSH 10ML SYR IVF SCH (19:30)
[2020-03-11] MEDS: MORPHINE SULFATE 4 MG/ML, 1ML IV PRN ×5 (00:05→07:33)
[2020-03-11] MEDS: ATROPINE OPHTH SOLN 1%, 5ML PO PRN ×5 (00:07→12:30)
[2020-03-11] MEDS: LORazepam 2 MG/ML, 1ML IV PRN ×4 (00:17→13:17)
[2020-03-11] MEDS: SODIUM CHLORIDE FLUSH 10ML SYR IVF SCH ×2 (08:04→21:00)
[2020-03-11] MEDS ORDERED: morphine SULFATE 100 MG in DEXTROSE 5% 90 ML IV PRN (10:00)
== END 2020-03-12 02:23 | disposition expired | DRG 21 ==
LOC: ED 15:13 → EDIP 16:25 → CCU 18:53 → 4NW 03-10 22:16
PROVIDERS: ADMIT Internal Medicine; ATTEND Hospitalist
PROC: 00C70ZZ Extirpation of Matter from Cerebral Hemisphere, Open Approach (ICD-10-PCS; 2020-02-28)
PROC: 02HV33Z Insertion of Infusion Device into Superior Vena Cava, Percutaneous Approach (ICD-10-PCS; 2020-02-28)
PROC: B548ZZA Ultrasonography of Superior Vena Cava, Guidance (ICD-10-PCS; 2020-02-28)
PROC: 5A1955Z Respiratory Ventilation, Greater than 96 Consecutive Hours (ICD-10-PCS; 2020-02-28)
PROC: 0BH17EZ Insertion of Endotracheal Airway into Trachea, Via Natural or Artificial Opening (ICD-10-PCS; 2020-02-28)
PROC: 0NT Head and Facial Bones, Resection (ICD-10-PCS; principal; 2020-02-28 16:00)
PROC: 0T9B70Z Drainage of Bladder with Drainage Device, Via Natural or Artificial Opening (ICD-10-PCS; 2020-03-09)
DX: I61.3 Nontraumatic intracerebral hemorrhage in brain stem (principal); D72.828 Other elevated white blood cell count; E11.65 Type 2 diabetes mellitus with hyperglycemia; E66.01 Morbid (severe) obesity due to excess calories; Z68.43 Body mass index [BMI] 50.0-59.9, adult; E78.5 Hyperlipidemia, unspecified; E87.6 Hypokalemia; G81.91 Hemiplegia, unspecified affecting right dominant side; G93.41 Metabolic encephalopathy; I11.0 Hypertensive heart disease with heart failure; I50.22 Chronic systolic (congestive) heart failure; I63.89 Other cerebral infarction; I16.1 Hypertensive emergency; I27.20 Pulmonary hypertension, unspecified; I48.91 Unspecified atrial fibrillation; J96.01 Acute respiratory failure with hypoxia; Z66 Do not resuscitate; J69.0 Pneumonitis due to inhalation of food and vomit; R00.1 Bradycardia, unspecified; R16.0 Hepatomegaly, not elsewhere classified; Z20.828 Contact with and (suspected) exposure to other viral communicable diseases; R26.2 Difficulty in walking, not elsewhere classified; J44.9 Chronic obstructive pulmonary disease, unspecified; Z79.4 Long term (current) use of insulin; Z87.891 Personal history of nicotine dependence; Z91.14 Patient's other noncompliance with medication regimen; Z91.19 Patient's noncompliance with other medical treatment and regimen
CPT/HCPCS: 31500; 36415; 36556; 36600; 70450; 70496; 70498; 70551; 71045; 80047; 80048; 80053; 80076; 81001; 82247; 82248; 82330; 82803; 82947; 82962; 83036; 83735; 84132; 84295; 84443; 84478; 85014; 85025; 85610; 85730; 87040; 87070; 87075; 87077; 87081; 87086; 87106; 87186; 87205; 87635; 93005; 93306; 93975; 94002; 94003; 94640; 95819; 96374; 96375; 99291; C1713; G0378; J0295; J0690; J1953; J2250; J2405; J2704; J2710; J3010; J7060; Q9967; C1781; J0282; J0330; J0360; J1815; J1940; J2060; J2270; J2370; J3475; J7030; J7050